=== PATIENT | male | born 1945 | race Caucasian/White ===

== ENCOUNTER 2018-01-25 08:21 | Day surgery (SDC) | payer OTHER ==
[2018-01-23 12:02] VITALS: BMI 36.6
[~2018-01-25 08:21] MED LIST: LACTATED RINGERS 1,000 ML IV SCH
[2018-01-25 08:54] VITALS: TEMP 98
[2018-01-25] MEDS ORDERED: LACTATED RINGERS 1,000 ML IV ONE (08:54)
[2018-01-25] MEDS ORDERED: LIDOCAINE 1% 20 ML VIAL (10MG/ML) FOR IV START INTRADERMA ONE (08:54)
[2018-01-25] MEDS ORDERED: PROPOFOL 10 MG/ML 20 ML VIAL IV ONE (10:14)
--- NOTE | 2018-01-25 10:40 | P.PCN ---
Date of Procedure: 01/25/18 Procedure(s) Performed: procedure: Total colonoscopy. Preoperative diagnosis: Screening for neoplasia, patient has history of polyps. Postoperative diagnosis: Diffuse diverticulosis with no evidence of acute diverticulitis, strictures, polyps or cancer. Preparation: HalfLytely prep. Sedation: Was provided by anesthesia. Brief clinical history: The patient is a 72-year-old male who had a colonoscopy in February 2014 because of finding of blood in his stools. That showed multiple small and medium-sized polyps which were snared. The patient was advised repeat exam for surveillance. Procedure: With the patient on his left lateral decubitus position and after informed consent and adequate sedation, the perianal area was inspected and it did not show any fissures or fistulas. There were no masses felt on digital rectal examination. The Olympus CFQ 160L video colonoscope was then inserted in the rectum in the usual fashion and advanced to the cecum. There was diffuse diverticulosis noted with multiple diverticular orifices seen scattered on both the right and left side with no evidence of acute diverticulitis or strictures. The mucosa appeared healthy. No polyps or tumors were seen. I retroflexed the endoscope in the rectum before the endoscope was withdrawn. The patient tolerated the procedure well. Plan: The patient was reassured. Discussed dietary measures. He will follow up with you as planned and I recommended repeat exam in 5 years.
[2018-01-25 10:41] VITALS: RESP 16
[2018-01-25 10:48] VITALS: BP 140/92; PULSE 53
== END 2018-01-25 11:30 | disposition home or self-care (01) ==
LOC: ORWHC2ENDO 08:21
DX: Z12.11 Encounter for screening for malignant neoplasm of colon (principal); K57.30 Diverticulosis of large intestine without perforation or abscess without bleeding; I10 Essential (primary) hypertension; K21.9 Gastro-esophageal reflux disease without esophagitis; E78.5 Hyperlipidemia, unspecified; E07.9 Disorder of thyroid, unspecified; Z79.82 Long term (current) use of aspirin; Z86.010 Personal history of colon polyps; Z79.890 Hormone replacement therapy; Z79.899 Other long term (current) drug therapy
CPT/HCPCS: 45378; J2704

== ENCOUNTER → 2019-05-24 | Outpatient (CLI) | payer OTHER ==
[2019-05-24 12:28] LABS: African American GFR (CKD) >90 (>60 ml/min/1.73 sqM); Blood Urea Nitrogen 24 mg/dL (9-20); Non-African American GFR(CKD) 85 (>60 ml/min/1.73 sqM)
--- NOTE | 2019-05-24 14:51 | CT ---
EXAMINATION TYPE: CT abdomen pelvis wo/w con DATE OF EXAM: 05/24/2019 COMPARISON: None HISTORY: Abdominal pain CT DLP: 2600 mGycm CONTRAST: CT scan of the abdomen and pelvis is performed with Oral Contrast and without and with IV Contrast, p atient injected with 100 ml mL of Isovue 300. FINDINGS: LUNG BASES-: No visible nodule. No infiltrate. LIVER/GB: The gallbladder is surgically absent. No space occupying hepatic lesion. Biliary tree is of normal caliber. PANCREAS: No inflammation. No distinct mass. SPLEEN: No splenic enlargement. No lesion seen. Splenic granulomas identified. ADRENALS: No nodule. No thickening. KIDNEYS/BLADDER: No hydronephrosis. No nephrolithiasis. No distinct renal mass. Urinary bladder g rossly unremarkable. BOWEL: Normal appendix. Normal bowel caliber. No inflammation. Sigmoid diverticulosis without diver ticulitis. GENITAL ORGANS: No gross abnormality. LYMPH NODES: No greater than 1cm abdominal or pelvic lymph nodes are appreciated. AORTA: No significant abnormality. OSSEOUS STRUCTURES: No significant abnormality is seen. OTHER: No significant additional abnormality is seen. IMPRESSION: 1. No acute process identified to account for the patient's symptoms.
== END | disposition home or self-care (01) ==
LOC: RADCTMAIN 11:44
DX: R10.9 Unspecified abdominal pain (principal)
CPT/HCPCS: 82565; 84520; 74178; 36415; Q9967

== ENCOUNTER 2022-02-18 11:52 | Inpatient (IN) | payer OTHER, MEDICARE ==
[2022-02-18 12:09] LABS: Glucose,Whole Blood >600 mg/dL (70-110)
[2022-02-18 12:09] LABS: Glucose,Whole Blood >600 mg/dL (70-110)
[2022-02-18] MEDS ORDERED: ONDANSETRON 4 MG/2 ML VIAL IVP STA (12:24)
[2022-02-18] MEDS ORDERED: SODIUM CHLORIDE 0.9% 1,000 ML IV STA (12:24)
--- NOTE | 2022-02-18 12:24 | ED ---
General Adult HPI - General Chief complaint: Weakness Stated complaint: dizziness Time Seen by Provider: 02/18/22 12:15 Source: patient, family Mode of arrival: wheelchair - History of Present Illness Initial comments: 77-year-old male presents to the emergency department reporting lightheadedness for the past couple of days. He admits he has been weak with a poor appetite. He is a diabetic and admits to taking his Lantus however was taken off of his short acting insulin one month ago. He is unaware of why this was done. He has not checked his sugar in over 2 weeks. States that his dog ruined his Accu-Chek machine. He is concerned that his glucose is low. She admits to some chronic low back pain. Denies any abdominal pain. No diarrhea, vomiting, fevers, chest pain, shortness of breath. No other alleviating, precipitating or modifying factors - Related Data Home Medications Medication Instructions Recorded Confirmed Aspirin 81 mg PO HS 02/14/14 02/18/22 Atorvastatin [Lipitor] 80 mg PO HS 02/14/14 02/18/22 Levothyroxine Sodium [Synthroid] 100 mcg PO HS 02/14/14 02/18/22 Cholecalciferol [Vitamin D3 (25 50 mcg PO HS 02/18/22 02/18/22 Mcg = 1000 Iu)] Empagliflozin [Jardiance] 25 mg PO HS 02/18/22 02/18/22 Ibuprofen [Motrin] 600 mg PO Q8HR PRN 02/18/22 02/18/22 Insulin Glargine,Hum.rec.anlog 60 units SQ HS 02/18/22 02/18/22 [Insulin Glargine Solostar] Pioglitazone [Actos] 30 mg PO HS 02/18/22 02/18/22 Tamsulosin HCl [Flomax] 0.4 mg PO HS 02/18/22 02/18/22 amLODIPine [Norvasc] 5 mg PO HS 02/18/22 02/18/22 lisinopriL [Zestril] 20 mg PO HS 02/18/22 02/18/22 metFORMIN HCL [Glucophage] 1,000 mg PO HS 02/18/22 02/18/22 Allergies Allergy/AdvReac Type Severity Reaction Status Date / Time No Known Allergies Allergy Verified 02/18/22 15:01 Review of Systems ROS Statement: Those systems with pertinent positive or pertinent negative responses have been documented in the HPI. ROS Other: All systems not noted in ROS Statement are negative. Past Medical History Past Medical History: GERD/Reflux, Hyperlipidemia, Thyroid Disorder Additional Past Medical History / Comment(s): occ heartburn, History of Any Multi-Drug Resistant Organisms: None Reported Past Surgical History: Cholecystectomy Past Anesthesia/Blood Transfusion Reactions: No Reported Reaction Past Psychological History: No Psychological Hx Reported Past Alcohol Use History: None Reported Past Drug Use History: None Reported - Past Family History Mother Family Medical History: Cancer General Exam General appearance: lethargic Head exam: Present: atraumatic, normocephalic, normal inspection Eye exam: Present: normal appearance, PERRL, EOMI. Absent: scleral icterus, conjunctival injection, periorbital swelling ENT exam: Present: mucous membranes dry, other (acetone smell to breath) Respiratory exam: Present: normal lung sounds bilaterally. Absent: respiratory distress, wheezes, rales, rhonchi, stridor Cardiovascular Exam: Present: regular rate, normal rhythm, normal heart sounds. Absent: systolic murmur, diastolic murmur, rubs, gallop, clicks GI/Abdominal exam: Present: soft, normal bowel sounds. Absent: distended, tenderness, guarding, rebound, rigid Extremities exam: Present: normal inspection, full ROM, normal capillary refill. Absent: tenderness, pedal edema, joint swelling, calf tenderness Psychiatric exam: Present: flat affect Skin exam: Present: dry Course Vital Signs 02/18/22 02/18/22 02/18/22 12:02 14:53 17:11 Temperature 97.5 F L Pulse Rate 80 90 96 Pulse Rate [ Bicycle Inspector ] Respiratory 20 18 18 Rate Blood Pressure 71/47 105/67 86/51 O2 Sat by Pulse 99 96 98 Oximetry 02/18/22 02/18/22 02/18/22 20:04 22:19 23:19 Temperature 97.6 F 97.7 F Pulse Rate 94 80 90 Pulse Rate [ Bicycle Inspector ] Respiratory 20 20 Rate Blood Pressure 83/47 94/49 90/59 O2 Sat by Pulse 93 L 95 93 L Oximetry 02/19/22 02/19/22 02/19/22 01:04 01:43 01:44 Temperature Pulse Rate 98 89 Pulse Rate [ 89 Bicycle Inspector ] Respiratory 14 19 Rate Blood Pressure 83/48 94/52 O2 Sat by Pulse 93 L 93 L Oximetry 02/19/22 02/19/22 02/19/22 03:27 04:32 05:33 Temperature 97.8 F 97.9 F 97.7 F Pulse Rate 98 85 81 Pulse Rate [ Bicycle Inspector ] Respiratory 16 19 19 Rate Blood Pressure 89/55 87/51 86/62 O2 Sat by Pulse 97 97 91 L Oximetry 02/19/22 02/19/22 02/19/22 07:29 08:44 09:43 Temperature Pulse Rate 72 73 74 Pulse Rate [ Bicycle Inspector ] Respiratory 24 20 20 Rate Blood Pressure 88/39 84/64 82/51 O2 Sat by Pulse 94 L 95 95 Oximetry 02/19/22 02/19/22 02/19/22 10:54 12:09 16:17 Temperature Pulse Rate 75 62 85 Pulse Rate [ Bicycle Inspector ] Respiratory 21 18 14 Rate Blood Pressure 100/60 124/85 92/63 O2 Sat by Pulse 96 97 95 Oximetry - Reevaluation(s) Reevaluation #1: Spoke with Dr. Roberson. Will accept the patient into the ICU however there is a significant hold for beds 02/18/22 15:54 EKG Findings - EKG Comments: EKG Findings:: EKG demonstrates sinus rhythm with a rate of 76. ND interval 161. QRS 110. QTC of 453. Significant baseline artifact. No acute ST segment elevation. ST depression V4 through V6. EKG was interpreted by myself Medical Decision Making - Medical Decision Making Upon arrival patient was placed into room 5. A thorough history and physical exam was performed. IV access is established. He was given 2 L bolus of normal saline. Laboratory studies are conducted which are remarkable for white count of 16.3. PH is 7.24. CO2 25. O2 of 77. Glucose is 1056. Lactic acid 5.8. Troponin 0.066 area and he is acetone positive. Chest x-ray demonstrates no acute cardiopulmonary process. Patient is started on insulin drip. Spoke with Dr. Hall. Also spoke with Dr. Roberson for ICU admission. Patient agreeable to admission and is awaiting a bed on the floor in stable condition - Lab Data Result diagrams: 02/19/22 22:01 02/19/22 22:01 Lab Results 02/18/22 02/18/22 02/18/22 Range/Units 12:04 12:06 12:29 WBC 16.3 H (3.8-10.6) k/uL RBC 4.24 L (4.30-5.90) m/uL Hgb 14.0 (13.0-17.5) gm/dL Hct 45.5 (39.0-53.0) % MCV 107.3 H (80.0-100.0) fL MCH 32.9 (25.0-35.0) pg MCHC 30.7 L (31.0-37.0) g/dL RDW 12.1 (11.5-15.5) % Plt Count 201 (150-450) k/uL MPV 11.1 Neutrophils % 87 % Lymphocytes % 8 % Monocytes % 3 % Eosinophils % 0 % Basophils % 0 % Neutrophils # 14.2 H (1.3-7.7) k/uL Lymphocytes # 1.4 (1.0-4.8) k/uL Monocytes # 0.5 (0-1.0) k/uL Eosinophils # 0.1 (0-0.7) k/uL Basophils # 0.1 (0-0.2) k/uL Hypochromasia Marked Macrocytosis Moderate PT (9.0-12.0) sec INR (<1.2) APTT (22.0-30.0) sec Sample Site ABG pH (7.35-7.45) ABG pCO2 (35-45) mmHg ABG pO2 (83-108) mmHg ABG HCO3 (21-25) mmol/L ABG Total CO2 (19-24) mmol/L ABG O2 Saturation (94-97) % ABG Base Excess mmol/L Padilla Test VBG pH (7.31-7.41) VBG pCO2 (37-51) mmHg VBG HCO3 (24-28) mmol/L FiO2 % Sodium (137-145) mmol/L Potassium (3.5-5.1) mmol/L Chloride (98-107) mmol/L Carbon Dioxide (22-30) mmol/L Anion Gap mmol/L BUN (9-20) mg/dL Creatinine (0.66-1.25) mg/dL Est GFR (CKD-EPI)AfAm (>60 ml/min/1.73 sqM) Est GFR (CKD-EPI)NonAf (>60 ml/min/1.73 sqM) Glucose (74-99) mg/dL POC Glucose (mg/dL) >600 H >600 H (70-110) mg/dL POC Glu Tool Honing Machine Set Up Operator MARÍA Glasgow, Juanita Glasgow, Juanita Lactic Ac Sepsis Rflx Plasma Lactic Acid Bryn (0.7-2.0) mmol/L Calcium (8.4-10.2) mg/dL Phosphorus (2.5-4.5) mg/dL Magnesium (1.6-2.3) mg/dL Total Bilirubin (0.2-1.3) mg/dL AST (17-59) U/L ALT (4-49) U/L Alkaline Phosphatase (38-126) U/L Troponin I (0.000-0.034) ng/mL NT-Pro-B Natriuret Pep pg/mL Total Protein (6.3-8.2) g/dL Albumin (3.5-5.0) g/dL Lipase (23-300) U/L TSH (0.465-4.680) mIU/L Free T4 (0.78-2.19) ng/dL Acetone, Qual (Negative) 02/18/22 02/18/22 02/18/22 Range/Units 12:29 12:29 12:29 WBC (3.8-10.6) k/uL RBC (4.30-5.90) m/uL Hgb (13.0-17.5) gm/dL Hct (39.0-53.0) % MCV (80.0-100.0) fL MCH (25.0-35.0) pg MCHC (31.0-37.0) g/dL RDW (11.5-15.5) % Plt Count (150-450) k/uL MPV Neutrophils % % Lymphocytes % % Monocytes % % Eosinophils % % Basophils % % Neutrophils # (1.3-7.7) k/uL Lymphocytes # (1.0-4.8) k/uL Monocytes # (0-1.0) k/uL Eosinophils # (0-0.7) k/uL Basophils # (0-0.2) k/uL Hypochromasia Macrocytosis PT (9.0-12.0) sec INR (<1.2) APTT (22.0-30.0) sec Sample Site ABG pH (7.35-7.45) ABG pCO2 (35-45) mmHg ABG pO2 (83-108) mmHg ABG HCO3 (21-25) mmol/L ABG Total CO2 (19-24) mmol/L ABG O2 Saturation (94-97) % ABG Base Excess mmol/L Padilla Test VBG pH (7.31-7.41) VBG pCO2 (37-51) mmHg VBG HCO3 (24-28) mmol/L FiO2 % Sodium 123 L (137-145) mmol/L Potassium 5.0 (3.5-5.1) mmol/L Chloride 79 L (98-107) mmol/L Carbon Dioxide 10 L (22-30) mmol/L Anion Gap 34 mmol/L BUN 43 H (9-20) mg/dL Creatinine 2.16 H (0.66-1.25) mg/dL Est GFR (CKD-EPI)AfAm 33 (>60 ml/min/1.73 sqM) Est GFR (CKD-EPI)NonAf 28 (>60 ml/min/1.73 sqM) Glucose 1056 H* (74-99) mg/dL POC Glucose (mg/dL) (70-110) mg/dL POC Glu Tool Honing Machine Set Up Operator ID Lactic Ac Sepsis Rflx Plasma Lactic Acid Bryn 5.8 H* (0.7-2.0) mmol/L Calcium 10.6 H (8.4-10.2) mg/dL Phosphorus (2.5-4.5) mg/dL Magnesium 2.3 (1.6-2.3) mg/dL Total Bilirubin 1.7 H (0.2-1.3) mg/dL AST 30 (17-59) U/L ALT 35 (4-49) U/L Alkaline Phosphatase 159 H (38-126) U/L Troponin I 0.066 H* (0.000-0.034) ng/mL NT-Pro-B Natriuret Pep pg/mL Total Protein 6.2 L (6.3-8.2) g/dL Albumin 4.2 (3.5-5.0) g/dL Lipase 199 (23-300) U/L TSH 10.100 H (0.465-4.680) mIU/L Free T4 1.48 (0.78-2.19) ng/dL Acetone, Qual Positive (Negative) 02/18/22 02/18/22 02/18/22 Range/Units 12:29 12:29 13:02 WBC (3.8-10.6) k/uL RBC (4.30-5.90) m/uL Hgb (13.0-17.5) gm/dL Hct (39.0-53.0) % MCV (80.0-100.0) fL MCH (25.0-35.0) pg MCHC (31.0-37.0) g/dL RDW (11.5-15.5) % Plt Count (150-450) k/uL MPV Neutrophils % % Lymphocytes % % Monocytes % % Eosinophils % % Basophils % % Neutrophils # (1.3-7.7) k/uL Lymphocytes # (1.0-4.8) k/uL Monocytes # (0-1.0) k/uL Eosinophils # (0-0.7) k/uL Basophils # (0-0.2) k/uL Hypochromasia Macrocytosis PT (9.0-12.0) sec INR (<1.2) APTT (22.0-30.0) sec Sample Site ABG pH (7.35-7.45) ABG pCO2 (35-45) mmHg ABG pO2 (83-108) mmHg ABG HCO3 (21-25) mmol/L ABG Total CO2 (19-24) mmol/L ABG O2 Saturation (94-97) % ABG Base Excess mmol/L Padilla Test VBG pH 7.20 L* (7.31-7.41) VBG pCO2 33 L (37-51) mmHg VBG HCO3 12 L (24-28) mmol/L FiO2 % Sodium (137-145) mmol/L Potassium (3.5-5.1) mmol/L Chloride (98-107) mmol/L Carbon Dioxide (22-30) mmol/L Anion Gap mmol/L BUN (9-20) mg/dL Creatinine (0.66-1.25) mg/dL Est GFR (CKD-EPI)AfAm (>60 ml/min/1.73 sqM) Est GFR (CKD-EPI)NonAf (>60 ml/min/1.73 sqM) Glucose (74-99) mg/dL POC Glucose (mg/dL) (70-110) mg/dL POC Glu Tool Honing Machine Set Up Operator ID Lactic Ac Sepsis Rflx Y Plasma Lactic Acid Bryn (0.7-2.0) mmol/L Calcium (8.4-10.2) mg/dL Phosphorus (2.5-4.5) mg/dL Magnesium (1.6-2.3) mg/dL Total Bilirubin (0.2-1.3) mg/dL AST (17-59) U/L ALT (4-49) U/L Alkaline Phosphatase (38-126) U/L Troponin I (0.000-0.034) ng/mL NT-Pro-B Natriuret Pep 388 pg/mL Total Protein (6.3-8.2) g/dL Albumin (3.5-5.0) g/dL Lipase (23-300) U/L TSH (0.465-4.680) mIU/L Free T4 (0.78-2.19) ng/dL Acetone, Qual (Negative) 02/18/22 02/18/22 02/18/22 Range/Units 13:20 14:47 15:49 WBC (3.8-10.6) k/uL RBC (4.30-5.90) m/uL Hgb (13.0-17.5) gm/dL Hct (39.0-53.0) % MCV (80.0-100.0) fL MCH (25.0-35.0) pg MCHC (31.0-37.0) g/dL RDW (11.5-15.5) % Plt Count (150-450) k/uL MPV Neutrophils % % Lymphocytes % % Monocytes % % Eosinophils % % Basophils % % Neutrophils # (1.3-7.7) k/uL Lymphocytes # (1.0-4.8) k/uL Monocytes # (0-1.0) k/uL Eosinophils # (0-0.7) k/uL Basophils # (0-0.2) k/uL Hypochromasia Macrocytosis PT 10.8 (9.0-12.0) sec INR 1.0 (<1.2) APTT 21.7 L (22.0-30.0) sec Sample Site Right Brachial ABG pH 7.24 L (7.35-7.45) ABG pCO2 25 L (35-45) mmHg ABG pO2 77 L (83-108) mmHg ABG HCO3 11 L (21-25) mmol/L ABG Total CO2 11 L (19-24) mmol/L ABG O2 Saturation 93.1 L (94-97) % ABG Base Excess -16.9 mmol/L Padilla Test Yes VBG pH (7.31-7.41) VBG pCO2 (37-51) mmHg VBG HCO3 (24-28) mmol/L FiO2 21 % Sodium (137-145) mmol/L Potassium (3.5-5.1) mmol/L Chloride (98-107) mmol/L Carbon Dioxide (22-30) mmol/L Anion Gap mmol/L BUN (9-20) mg/dL Creatinine (0.66-1.25) mg/dL Est GFR (CKD-EPI)AfAm (>60 ml/min/1.73 sqM) Est GFR (CKD-EPI)NonAf (>60 ml/min/1.73 sqM) Glucose (74-99) mg/dL POC Glucose (mg/dL) (70-110) mg/dL POC Glu Tool Honing Machine Set Up Operator ID Lactic Ac Sepsis Rflx Plasma Lactic Acid Bryn 3.8 H* (0.7-2.0) mmol/L Calcium (8.4-10.2) mg/dL Phosphorus (2.5-4.5) mg/dL Magnesium (1.6-2.3) mg/dL Total Bilirubin (0.2-1.3) mg/dL AST (17-59) U/L ALT (4-49) U/L Alkaline Phosphatase (38-126) U/L Troponin I (0.000-0.034) ng/mL NT-Pro-B Natriuret Pep pg/mL Total Protein (6.3-8.2) g/dL Albumin (3.5-5.0) g/dL Lipase (23-300) U/L TSH (0.465-4.680) mIU/L Free T4 (0.78-2.19) ng/dL Acetone, Qual (Negative) 02/18/22 02/18/22 02/18/22 Range/Units 15:49 15:49 15:49 WBC (3.8-10.6) k/uL RBC (4.30-5.90) m/uL Hgb (13.0-17.5) gm/dL Hct (39.0-53.0) % MCV (80.0-100.0) fL MCH (25.0-35.0) pg MCHC (31.0-37.0) g/dL RDW (11.5-15.5) % Plt Count (150-450) k/uL MPV Neutrophils % % Lymphocytes % % Monocytes % % Eosinophils % % Basophils % % Neutrophils # (1.3-7.7) k/uL Lymphocytes # (1.0-4.8) k/uL Monocytes # (0-1.0) k/uL Eosinophils # (0-0.7) k/uL Basophils # (0-0.2) k/uL Hypochromasia Macrocytosis PT (9.0-12.0) sec INR (<1.2) APTT (22.0-30.0) sec Sample Site ABG pH (7.35-7.45) ABG pCO2 (35-45) mmHg ABG pO2 (83-108) mmHg ABG HCO3 (21-25) mmol/L ABG Total CO2 (19-24) mmol/L ABG O2 Saturation (94-97) % ABG Base Excess mmol/L Padilla Test VBG pH (7.31-7.41) VBG pCO2 (37-51) mmHg VBG HCO3 (24-28) mmol/L FiO2 % Sodium 126 L (137-145) mmol/L Potassium 5.1 (3.5-5.1) mmol/L Chloride 85 L (98-107) mmol/L Carbon Dioxide 9 L* (22-30) mmol/L Anion Gap 32 mmol/L BUN 49 H (9-20) mg/dL Creatinine 2.03 H (0.66-1.25) mg/dL Est GFR (CKD-EPI)AfAm 36 (>60 ml/min/1.73 sqM) Est GFR (CKD-EPI)NonAf 31 (>60 ml/min/1.73 sqM) Glucose 1014 H* (74-99) mg/dL POC Glucose (mg/dL) (70-110) mg/dL POC Glu Tool Honing Machine Set Up Operator ID Lactic Ac Sepsis Rflx Plasma Lactic Acid Bryn (0.7-2.0) mmol/L Calcium (8.4-10.2) mg/dL Phosphorus 8.0 H (2.5-4.5) mg/dL Magnesium (1.6-2.3) mg/dL Total Bilirubin (0.2-1.3) mg/dL AST (17-59) U/L ALT (4-49) U/L Alkaline Phosphatase (38-126) U/L Troponin I 0.295 H* (0.000-0.034) ng/mL NT-Pro-B Natriuret Pep pg/mL Total Protein (6.3-8.2) g/dL Albumin (3.5-5.0) g/dL Lipase (23-300) U/L TSH (0.465-4.680) mIU/L Free T4 (0.78-2.19) ng/dL Acetone, Qual (Negative) Critical Care Time Critical Care Time: Yes Critical Care Time: 45 minutes Disposition Clinical Impression: DKA (diabetic ketoacidosis), Lactic acid acidosis, Leukocytosis, JENIFER (acute kidney injury), NSTEMI (non-ST elevated myocardial infarction) Disposition: ADMITTED IP TO THIS [facility] Condition: Serious Is patient prescribed a controlled substance at d/c from ED?: No Time of Disposition: 16:07 Decision to Admit Reason: Admit from EC Decision Date: 02/18/22 Decision Time: 16:07
[2022-02-18 12:45] LABS: Basophils # (A) 0.1 k/uL (0-0.2); Basophils % (A) 0 %; Eosinophils # (A) 0.1 k/uL (0-0.7); Eosinophils % (A) 0 %; HCT 45.5 % (39.0-53.0); Hypochromasia Marked; Lymphocytes # (A) 1.4 k/uL (1.0-4.8); Lymphocytes % (A) 8 %; MCH 32.9 pg (25.0-35.0); MCHC 30.7 g/dL (31.0-37.0); MCV 107.3 fL (80.0-100.0); Macrocytosis Moderate; Mean Platelet Volume 11.1; Monocytes # (A) 0.5 k/uL (0-1.0); Monocytes % (A) 3 %; Neutrophils # (A) 14.2 k/uL (1.3-7.7); Neutrophils % (A) 87 %; Platelet Count 201 k/uL (150-450); RBC 4.24 m/uL (4.30-5.90); RDW 12.1 % (11.5-15.5); WBC 16.3 k/uL (3.8-10.6)
[2022-02-18 12:47] LABS: VBG PH 7.2 (7.31-7.41)
[2022-02-18 12:56] LABS: ALT 35 U/L (4-49); AST 30 U/L (17-59); African American GFR (CKD) 33 (>60 ml/min/1.73 sqM); Albumin 4.2 g/dL (3.5-5.0); Alkaline Phosphatase 159 U/L (38-126); Anion Gap 34 mmol/L; Blood Urea Nitrogen 43 mg/dL (9-20); Calcium 10.6 mg/dL (8.4-10.2); Carbon Dioxide 10 mmol/L (22-30); Chloride 79 mmol/L (98-107); Lipase 199 U/L (23-300); Magnesium 2.3 mg/dL (1.6-2.3); Non-African American GFR(CKD) 28 (>60 ml/min/1.73 sqM); Sodium 123 mmol/L (137-145); Total Bilirubin 1.7 mg/dL (0.2-1.3); Total Protein 6.2 g/dL (6.3-8.2)
[2022-02-18 13:09] LABS: Glucose 1056 mg/dL (74-99)
--- NOTE | 2022-02-18 13:16 | XR ---
EXAMINATION TYPE: XR chest 2V DATE OF EXAM: 02/18/2022 1:11 PM COMPARISON: Chest radiographs from 12/04/2015 TECHNIQUE: XR chest 2V Frontal and lateral views of the chest. CLINICAL INDICATION:Male, 77 years old with history of Weakness; FINDINGS: Lungs/Pleura: There is no evidence of pleural effusion, focal consolidation, or pneumothorax. Pulmonary vascularity: Unremarkable. Heart/mediastinum: Cardiomediastinal silhouette is unremarkable. Musculoskeletal: No acute osseous pathology. IMPRESSION: No acute cardiopulmonary disease/process.
[2022-02-18 13:27] LABS: ABG Base Excess -16.9 mmol/L; ABG HCO3 11 mmol/L (21-25); ABG Oxygen Saturation 93.1 % (94-97); ABG PCO2 25 mmHg (35-45); ABG PH 7.24 (7.35-7.45); ABG PO2 77 mmHg (83-108); ABG TCO2 11 mmol/L (19-24); Allen Test Performed? Yes
[2022-02-18 14:24] LABS: T4, Free (Free Thyroxine) 1.48 ng/dL (0.78-2.19)
[2022-02-18] MEDS ORDERED: fentaNYL (PF) 50 MCG/ML 2 ML AMP IVP ONE (14:45)
[2022-02-18 15:20] LABS: Partial Thromboplastin Time 21.7 sec (22.0-30.0); Prothrombin Time 10.8 sec (9.0-12.0)
[2022-02-18] MEDS ORDERED: NALOXONE 0.4 MG/ML 1 ML VIAL IV PRN (16:01)
[2022-02-18 16:23] LABS: Potassium 5.1 mmol/L (3.5-5.1)
--- NOTE | 2022-02-18 16:40 | P.HPIM ---
History of Present Illness H&P Date: 02/18/22 Chief Complaint: Lightheadedness and DKA Patient is a 77-year-old male with a past medical history of diabetes, hypothyroidism, hypertension, hyperlipidemia, BPH who presents to the ED with lightheadedness and headache. Patient states that his symptoms started this morning when he woke up. Patient initially attributed this to low blood sugar. Unfortunately he was not able to check his blood sugar because his dog ate his glucometer. Patient states that he ate some candy and also drank some pop which he normally does when he has low blood sugar. He states that his symptoms did not resolve and this prompted him to come to the ED. Patient also stated that recently his PCP discontinued his short-acting insulin. Patient stated that he was diagnosed with diabetes about 2 years ago. Patient also complaining of polydipsia and polyuria. In the ED patient was found to be in DKA with pH 7.24 and bicarb 10 and blood glucose greater than 1000 and lactic acid 5.8 and creatinine 2.16 and troponin 0.066 and TSH 10 with T4 1 0.48. Patient will be started on DKA protocol and will be admitted to the ICU. Review of Systems 10 ROS reviewed and are negative except as noted in HPI Past Medical History Past Medical History: GERD/Reflux, Hyperlipidemia, Thyroid Disorder Additional Past Medical History / Comment(s): occ heartburn, History of Any Multi-Drug Resistant Organisms: None Reported Past Surgical History: Cholecystectomy Past Anesthesia/Blood Transfusion Reactions: No Reported Reaction Past Psychological History: No Psychological Hx Reported Past Alcohol Use History: None Reported Past Drug Use History: None Reported - Past Family History Mother Family Medical History: Cancer Medications and Allergies Home Medications Medication Instructions Recorded Confirmed Type Aspirin 81 mg PO HS 02/14/14 02/18/22 History Atorvastatin [Lipitor] 80 mg PO HS 02/14/14 02/18/22 History Levothyroxine Sodium [Synthroid] 100 mcg PO HS 02/14/14 02/18/22 History Cholecalciferol [Vitamin D3 (25 50 mcg PO HS 02/18/22 02/18/22 History Mcg = 1000 Iu)] Empagliflozin [Jardiance] 25 mg PO HS 02/18/22 02/18/22 History Ibuprofen [Motrin] 600 mg PO Q8HR PRN 02/18/22 02/18/22 History Insulin Glargine,Hum.rec.anlog 60 units SQ HS 02/18/22 02/18/22 History [Insulin Glargine Solostar] Pioglitazone [Actos] 30 mg PO HS 02/18/22 02/18/22 History Tamsulosin HCl [Flomax] 0.4 mg PO HS 02/18/22 02/18/22 History amLODIPine [Norvasc] 5 mg PO HS 02/18/22 02/18/22 History lisinopriL [Zestril] 20 mg PO HS 02/18/22 02/18/22 History metFORMIN HCL [Glucophage] 1,000 mg PO HS 02/18/22 02/18/22 History Allergies Allergy/AdvReac Type Severity Reaction Status Date / Time No Known Allergies Allergy Verified 02/18/22 15:01 Physical Exam Osteopathic Statement: *. No significant issues noted on an osteopathic structural exam other than those noted in the History and Physical/Consult. Vitals: Vital Signs Temp Pulse Resp BP Pulse Ox 02/18/22 14:53 90 18 105/67 96 02/18/22 12:02 97.5 F L 80 20 71/47 99 Intake and Output 02/18/22 02/18/22 02/18/22 06:59 14:59 22:59 Other: Weight 95.254 kg General: [Alert and oriented, well nourished, no acute distress]. Eye: [PERRL, EOMI, normal conjunctiva]. HENT: [Normocephalic, clear tympanic membranes, normal hearing, dry oral mucosa, no scleral icterus, no sinus tenderness]. Neck: [Supple, non-tender, no carotid bruits, no JVD, no lymphadenopathy]. Lungs: [Clear to auscultation and percussion, non-labored respiration]. Heart: [Normal rate, regular rhythm, no murmur, gallop or edema]. Abdomen: [Soft, non-tender, non-distended, normal bowel sounds, no masses]. Musculoskeletal: [Normal range of motion and strength, no tenderness or swelling]. Skin: [Skin is warm, dry and pink, no rashes or lesions]. Neurologic: [Awake, alert, and oriented X3, CN II-XII intact]. Psychiatric: [Cooperative, appropriate mood and affect]. Results CBC & Chem 7: 02/18/22 12:29 02/18/22 12:29 Labs: Abnormal Lab Results - Last 24 Hours (Table) 02/18/22 02/18/22 02/18/22 Range/Units 12:04 12:06 12:29 WBC 16.3 H (3.8-10.6) k/uL RBC 4.24 L (4.30-5.90) m/uL MCV 107.3 H (80.0-100.0) fL MCHC 30.7 L (31.0-37.0) g/dL Neutrophils # 14.2 H (1.3-7.7) k/uL APTT (22.0-30.0) sec ABG pH (7.35-7.45) ABG pCO2 (35-45) mmHg ABG pO2 (83-108) mmHg ABG HCO3 (21-25) mmol/L ABG Total CO2 (19-24) mmol/L ABG O2 Saturation (94-97) % VBG pH (7.31-7.41) VBG pCO2 (37-51) mmHg VBG HCO3 (24-28) mmol/L Sodium (137-145) mmol/L Chloride (98-107) mmol/L Carbon Dioxide (22-30) mmol/L BUN (9-20) mg/dL Creatinine (0.66-1.25) mg/dL Glucose (74-99) mg/dL POC Glucose (mg/dL) >600 H >600 H (70-110) mg/dL Plasma Lactic Acid Bryn (0.7-2.0) mmol/L Calcium (8.4-10.2) mg/dL Phosphorus (2.5-4.5) mg/dL Total Bilirubin (0.2-1.3) mg/dL Alkaline Phosphatase (38-126) U/L Troponin I (0.000-0.034) ng/mL Total Protein (6.3-8.2) g/dL TSH (0.465-4.680) mIU/L 02/18/22 02/18/22 02/18/22 Range/Units 12:29 12:29 12:29 WBC (3.8-10.6) k/uL RBC (4.30-5.90) m/uL MCV (80.0-100.0) fL MCHC (31.0-37.0) g/dL Neutrophils # (1.3-7.7) k/uL APTT (22.0-30.0) sec ABG pH (7.35-7.45) ABG pCO2 (35-45) mmHg ABG pO2 (83-108) mmHg ABG HCO3 (21-25) mmol/L ABG Total CO2 (19-24) mmol/L ABG O2 Saturation (94-97) % VBG pH (7.31-7.41) VBG pCO2 (37-51) mmHg VBG HCO3 (24-28) mmol/L Sodium 123 L (137-145) mmol/L Chloride 79 L (98-107) mmol/L Carbon Dioxide 10 L (22-30) mmol/L BUN 43 H (9-20) mg/dL Creatinine 2.16 H (0.66-1.25) mg/dL Glucose 1056 H* (74-99) mg/dL POC Glucose (mg/dL) (70-110) mg/dL Plasma Lactic Acid Bryn 5.8 H* (0.7-2.0) mmol/L Calcium 10.6 H (8.4-10.2) mg/dL Phosphorus (2.5-4.5) mg/dL Total Bilirubin 1.7 H (0.2-1.3) mg/dL Alkaline Phosphatase 159 H (38-126) U/L Troponin I 0.066 H* (0.000-0.034) ng/mL Total Protein 6.2 L (6.3-8.2) g/dL TSH 10.100 H (0.465-4.680) mIU/L 02/18/22 02/18/22 02/18/22 Range/Units 12:29 13:20 14:47 WBC (3.8-10.6) k/uL RBC (4.30-5.90) m/uL MCV (80.0-100.0) fL MCHC (31.0-37.0) g/dL Neutrophils # (1.3-7.7) k/uL APTT 21.7 L (22.0-30.0) sec ABG pH 7.24 L (7.35-7.45) ABG pCO2 25 L (35-45) mmHg ABG pO2 77 L (83-108) mmHg ABG HCO3 11 L (21-25) mmol/L ABG Total CO2 11 L (19-24) mmol/L ABG O2 Saturation 93.1 L (94-97) % VBG pH 7.20 L* (7.31-7.41) VBG pCO2 33 L (37-51) mmHg VBG HCO3 12 L (24-28) mmol/L Sodium (137-145) mmol/L Chloride (98-107) mmol/L Carbon Dioxide (22-30) mmol/L BUN (9-20) mg/dL Creatinine (0.66-1.25) mg/dL Glucose (74-99) mg/dL POC Glucose (mg/dL) (70-110) mg/dL Plasma Lactic Acid Bryn (0.7-2.0) mmol/L Calcium (8.4-10.2) mg/dL Phosphorus (2.5-4.5) mg/dL Total Bilirubin (0.2-1.3) mg/dL Alkaline Phosphatase (38-126) U/L Troponin I (0.000-0.034) ng/mL Total Protein (6.3-8.2) g/dL TSH (0.465-4.680) mIU/L 02/18/22 Range/Units 15:49 WBC (3.8-10.6) k/uL RBC (4.30-5.90) m/uL MCV (80.0-100.0) fL MCHC (31.0-37.0) g/dL Neutrophils # (1.3-7.7) k/uL APTT (22.0-30.0) sec ABG pH (7.35-7.45) ABG pCO2 (35-45) mmHg ABG pO2 (83-108) mmHg ABG HCO3 (21-25) mmol/L ABG Total CO2 (19-24) mmol/L ABG O2 Saturation (94-97) % VBG pH (7.31-7.41) VBG pCO2 (37-51) mmHg VBG HCO3 (24-28) mmol/L Sodium (137-145) mmol/L Chloride (98-107) mmol/L Carbon Dioxide (22-30) mmol/L BUN (9-20) mg/dL Creatinine (0.66-1.25) mg/dL Glucose (74-99) mg/dL POC Glucose (mg/dL) (70-110) mg/dL Plasma Lactic Acid Bryn (0.7-2.0) mmol/L Calcium (8.4-10.2) mg/dL Phosphorus 8.0 H (2.5-4.5) mg/dL Total Bilirubin (0.2-1.3) mg/dL Alkaline Phosphatase (38-126) U/L Troponin I (0.000-0.034) ng/mL Total Protein (6.3-8.2) g/dL TSH (0.465-4.680) mIU/L Assessment and Plan Assessment: DKA Metabolic acidosis Lactic acidosis -DKA protocol -Admit to ICU -private household worker consult was patient will need home care as well as glucometer Acute kidney injury Secondary to the above -Patient given aggressive fluids -Hold nephrotoxic agents which include lisinopril and metformin -Trend BMP Hypothyroidism TSH is elevated Resume home dose levothyroxine Patient will need a repeat TSH as outpatient Hypertension Resume home meds Hyperlipidemia Resume statin BPH Resume tamsulosin CODE STATUS:full code DVT prophylaxis: Subcu heparin Discussed with: Patient, ER, rn Anticipated length of stay > than [address]: home A total of 50 minutes was spent on the care of this complex patient more than 50% of the time was spent in counseling and care coordination.
[2022-02-18] MEDS: INSULIN REGULAR 100 UNIT in SODIUM CHLORIDE 0.9% 100 ML IV SCH (17:09)
[2022-02-18] MEDS ORDERED: SODIUM CHLORIDE 0.9% 2,000 ML IV ONE (17:18)
[2022-02-18] MEDS ORDERED: Magnesium Replacement Protocol 1 EACH MISC MISCELLANE PRN (17:26)
[2022-02-18] MEDS ORDERED: Potassium Replacement Protocol 1 EACH MISC MISCELLANE PRN (17:26)
[2022-02-18] MEDS ORDERED: fentaNYL (PF) 50 MCG/ML 2 ML AMP IVP STA (20:30)
[2022-02-18] MEDS: SODIUM CHLORIDE 0.9% 1,000 ML IV SCH (20:34)
[2022-02-18 20:36] LABS: Appearance,Urine Clear (Clear); Bilirubin,Urine Negative (Negative); Blood,Urine Negative (Negative); Color,Urine Colorless; Glucose,Urine (UA) 4+ (Negative); Leukocyte Esterase,Urine Negative (Negative); Nitrite,Urine Negative (Negative); Protein,Urine Negative (Negative); Specific Gravity,Urine 1.024 (1.001-1.035); Urobilinogen,Urine <2.0 mg/dL (<2.0)
[2022-02-18] MEDS: ASPIRIN 81 MG PO SCH (20:38)
[2022-02-18] MEDS: ATORVASTATIN 80 MG TAB PO SCH (20:38)
[2022-02-18] MEDS: TAMSULOSIN 0.4 MG CAP.ER.24H PO SCH (20:38)
[2022-02-18] MEDS: CHOLECALCIFEROL 25 MCG (1000 IU) TABLET PO SCH (20:38)
[2022-02-18 20:52] LABS: Potassium 4.4 mmol/L (3.5-5.1)
[2022-02-18] MEDS ORDERED: amLODIPine 5 MG TAB PO SCH (21:00)
[2022-02-18 21:01] LABS: Ketones,Urine 2+ (Negative)
[2022-02-18] MEDS ORDERED: HEPARIN SODIUM 1,000 UN/ML (10ML VL) IV ONE (22:02)
[2022-02-18] MEDS ORDERED: HEPARIN SODIUM 1,000 UN/ML (10ML VL) IV PRN (22:02)
--- NOTE | 2022-02-18 22:04 | P.PN ---
Progress Note - Text Progress Note Date: 02/18/22 The patient's troponin increased significantly from 0.295 on admission to 2.720. EKG was reviewed with minimal T-wave changes from prior EKG from 2016. The patient denied experiencing chest discomfort or shortness of breath. The case was discussed with cardiology on-call doctor Arminda recommended initiation of heparin infusion with low-dose aspirin. He also recommended an echocardiogram for the morning with cardiology on consult.
[2022-02-18] MEDS: LEVOTHYROXINE 100 MCG TAB PO SCH (22:26)
[2022-02-18] MEDS: HEPARIN SOD,PORK IN 0.45% NACL 25,000 UNIT in 0.45% NACL 1 250ML.BAG IV SCH (22:39)
[2022-02-18 22:58] LABS: Calcium 9.5 mg/dL (8.4-10.2); Magnesium 2.3 mg/dL (1.6-2.3); Phosphorus 3.5 mg/dL (2.5-4.5); Potassium 4.3 mmol/L (3.5-5.1)
[2022-02-18 23:21] LABS: Basophils # (A) 0.1 k/uL (0-0.2); Basophils % (A) 0 %; Eosinophils % (A) 0 %; HCT 35.8 % (39.0-53.0); HGB 11.8 gm/dL (13.0-17.5); Lymphocytes # (A) 2.2 k/uL (1.0-4.8); Lymphocytes % (A) 12 %; MCH 32.9 pg (25.0-35.0); MCHC 32.9 g/dL (31.0-37.0); Mean Platelet Volume 10.4; Monocytes % (A) 6 %; Neutrophils # (A) 14.1 k/uL (1.3-7.7); Neutrophils % (A) 80 %; Platelet Count 188 k/uL (150-450); RBC 3.59 m/uL (4.30-5.90); RDW 12.3 % (11.5-15.5); WBC 17.6 k/uL (3.8-10.6)
[2022-02-18 23:22] LABS: MCV 99.9 fL (80.0-100.0)
[2022-02-18 23:44] LABS: Partial Thromboplastin Time 21.1 sec (22.0-30.0); Prothrombin Time 10.9 sec (9.0-12.0)
[2022-02-19 01:00] LABS: Glucose,Whole Blood 498 mg/dL (70-110)
[2022-02-19 02:16] LABS: Glucose,Whole Blood 444 mg/dL (70-110)
[2022-02-19] MEDS: INSULIN REGULAR 100 UNIT in SODIUM CHLORIDE 0.9% 100 ML IV SCH (02:22)
[2022-02-19 03:20] LABS: Glucose,Whole Blood 411 mg/dL (70-110)
[2022-02-19] MEDS: SODIUM CHLORIDE 0.9% 1,000 ML IV SCH ×4 (03:31→20:56)
[2022-02-19 04:31] LABS: Glucose,Whole Blood 326 mg/dL (70-110)
[2022-02-19 05:33] LABS: Glucose,Whole Blood 286 mg/dL (70-110)
[2022-02-19 05:58] LABS: Basophils % (A) 0 %; Eosinophils # (A) 0.1 k/uL (0-0.7); Eosinophils % (A) 0 %; HCT 34.3 % (39.0-53.0); HGB 11.4 gm/dL (13.0-17.5); Lymphocytes # (A) 2.1 k/uL (1.0-4.8); Lymphocytes % (A) 11 %; MCH 32.6 pg (25.0-35.0); MCHC 33.4 g/dL (31.0-37.0); MCV 97.8 fL (80.0-100.0); Mean Platelet Volume 10.3; Monocytes % (A) 5 %; Neutrophils # (A) 15.5 k/uL (1.3-7.7); Neutrophils % (A) 82 %; Platelet Count 163 k/uL (150-450); RDW 12.4 % (11.5-15.5); WBC 18.9 k/uL (3.8-10.6)
[2022-02-19 06:02] LABS: INR 1.2 (<1.2); Partial Thromboplastin Time 56.9 sec (22.0-30.0)
[2022-02-19] MEDS: D5-0.45% NACL WITH KCL 20MEQ/L 1,000 ML IV SCH ×2 (06:02→08:37)
[2022-02-19 06:09] LABS: Calcium 9.1 mg/dL (8.4-10.2); Magnesium 2.3 mg/dL (1.6-2.3); Phosphorus 2.2 mg/dL (2.5-4.5); Potassium 4.1 mmol/L (3.5-5.1)
[2022-02-19 06:31] LABS: Glucose,Whole Blood 307 mg/dL (70-110)
[2022-02-19 07:39] LABS: Glucose,Whole Blood 426 mg/dL (70-110)
[2022-02-19] MEDS ORDERED: SODIUM CHLORIDE 0.9% 1,000 ML IV SCH (08:00)
[2022-02-19 08:35] LABS: Glucose,Whole Blood 195 mg/dL (70-110)
[2022-02-19] MEDS ORDERED: SODIUM CHLORIDE 0.9% 1,000 ML IV ONE (08:39)
--- NOTE | 2022-02-19 09:35 | P.PN ---
Subjective Progress Note Date: 02/26/22 Patient seen this morning. He denies any acute complaints. He denies any chest pain. He denies any nausea vomiting. He is complaining of a sore throat this morning. Objective - Vital Signs Vital signs: Vital Signs Temp 97.7 F 02/19/22 05:33 Pulse 73 02/19/22 08:44 Resp 20 02/19/22 08:44 BP 84/64 02/19/22 08:44 Pulse Ox 95 02/19/22 08:44 FiO2 Intake & Output 02/18/22 02/19/22 02/19/22 18:59 06:59 18:59 Intake Total 129.762 19.828 Balance 129.762 19.828 Weight 95.254 kg Intake: Intake, IV Titration 129.762 19.828 Amount Insulin Regular 100 unit 129.762 19.828 In Sodium Chloride 0.9% 100 ml @ 0.1 UNITS/KG/HR 9.621 mls/hr IV .[id number] FORMERLY [facility], 1928–1983 Rx#:[id number] - Exam General examination - Alert and Oriented 3 in NAD Heart - + S1S2 no murmurs Lungs - Clear to auscultation Abdomen soft NT ND +ve BS Extremities - No edema STATUS CONTROLLER - Moving all 4 extremities spontaneously Psych - Calm and cooperative - Labs CBC & Chem 7: 02/19/22 05:40 02/19/22 05:40 Labs: Abnormal Lab Results - Last 24 Hours (Table) 02/18/22 02/18/22 02/18/22 Range/Units 12:04 12:06 12:29 WBC 16.3 H (3.8-10.6) k/uL RBC 4.24 L (4.30-5.90) m/uL Hgb (13.0-17.5) gm/dL Hct (39.0-53.0) % MCV 107.3 H (80.0-100.0) fL MCHC 30.7 L (31.0-37.0) g/dL Neutrophils # 14.2 H (1.3-7.7) k/uL PT (9.0-12.0) sec INR (<1.2) APTT (22.0-30.0) sec ABG pH (7.35-7.45) ABG pCO2 (35-45) mmHg ABG pO2 (83-108) mmHg ABG HCO3 (21-25) mmol/L ABG Total CO2 (19-24) mmol/L ABG O2 Saturation (94-97) % VBG pH (7.31-7.41) VBG pCO2 (37-51) mmHg VBG HCO3 (24-28) mmol/L Sodium (137-145) mmol/L Chloride (98-107) mmol/L Carbon Dioxide (22-30) mmol/L BUN (9-20) mg/dL Creatinine (0.66-1.25) mg/dL Glucose (74-99) mg/dL POC Glucose (mg/dL) >600 H >600 H (70-110) mg/dL Plasma Lactic Acid Bryn (0.7-2.0) mmol/L Calcium (8.4-10.2) mg/dL Phosphorus (2.5-4.5) mg/dL Total Bilirubin (0.2-1.3) mg/dL Alkaline Phosphatase (38-126) U/L Troponin I (0.000-0.034) ng/mL Total Protein (6.3-8.2) g/dL TSH (0.465-4.680) mIU/L Urine Glucose (UA) (Negative) Urine Ketones (Negative) 02/18/22 02/18/22 02/18/22 Range/Units 12:29 12:29 12:29 WBC (3.8-10.6) k/uL RBC (4.30-5.90) m/uL Hgb (13.0-17.5) gm/dL Hct (39.0-53.0) % MCV (80.0-100.0) fL MCHC (31.0-37.0) g/dL Neutrophils # (1.3-7.7) k/uL PT (9.0-12.0) sec INR (<1.2) APTT (22.0-30.0) sec ABG pH (7.35-7.45) ABG pCO2 (35-45) mmHg ABG pO2 (83-108) mmHg ABG HCO3 (21-25) mmol/L ABG Total CO2 (19-24) mmol/L ABG O2 Saturation (94-97) % VBG pH (7.31-7.41) VBG pCO2 (37-51) mmHg VBG HCO3 (24-28) mmol/L Sodium 123 L (137-145) mmol/L Chloride 79 L (98-107) mmol/L Carbon Dioxide 10 L (22-30) mmol/L BUN 43 H (9-20) mg/dL Creatinine 2.16 H (0.66-1.25) mg/dL Glucose 1056 H* (74-99) mg/dL POC Glucose (mg/dL) (70-110) mg/dL Plasma Lactic Acid Bryn 5.8 H* (0.7-2.0) mmol/L Calcium 10.6 H (8.4-10.2) mg/dL Phosphorus (2.5-4.5) mg/dL Total Bilirubin 1.7 H (0.2-1.3) mg/dL Alkaline Phosphatase 159 H (38-126) U/L Troponin I 0.066 H* (0.000-0.034) ng/mL Total Protein 6.2 L (6.3-8.2) g/dL TSH 10.100 H (0.465-4.680) mIU/L Urine Glucose (UA) (Negative) Urine Ketones (Negative) 02/18/22 02/18/22 02/18/22 Range/Units 12:29 13:20 14:47 WBC (3.8-10.6) k/uL RBC (4.30-5.90) m/uL Hgb (13.0-17.5) gm/dL Hct (39.0-53.0) % MCV (80.0-100.0) fL MCHC (31.0-37.0) g/dL Neutrophils # (1.3-7.7) k/uL PT (9.0-12.0) sec INR (<1.2) APTT 21.7 L (22.0-30.0) sec ABG pH 7.24 L (7.35-7.45) ABG pCO2 25 L (35-45) mmHg ABG pO2 77 L (83-108) mmHg ABG HCO3 11 L (21-25) mmol/L ABG Total CO2 11 L (19-24) mmol/L ABG O2 Saturation 93.1 L (94-97) % VBG pH 7.20 L* (7.31-7.41) VBG pCO2 33 L (37-51) mmHg VBG HCO3 12 L (24-28) mmol/L Sodium (137-145) mmol/L Chloride (98-107) mmol/L Carbon Dioxide (22-30) mmol/L BUN (9-20) mg/dL Creatinine (0.66-1.25) mg/dL Glucose (74-99) mg/dL POC Glucose (mg/dL) (70-110) mg/dL Plasma Lactic Acid Bryn (0.7-2.0) mmol/L Calcium (8.4-10.2) mg/dL Phosphorus (2.5-4.5) mg/dL Total Bilirubin (0.2-1.3) mg/dL Alkaline Phosphatase (38-126) U/L Troponin I (0.000-0.034) ng/mL Total Protein (6.3-8.2) g/dL TSH (0.465-4.680) mIU/L Urine Glucose (UA) (Negative) Urine Ketones (Negative) 02/18/22 02/18/22 02/18/22 Range/Units 15:49 15:49 15:49 WBC (3.8-10.6) k/uL RBC (4.30-5.90) m/uL Hgb (13.0-17.5) gm/dL Hct (39.0-53.0) % MCV (80.0-100.0) fL MCHC (31.0-37.0) g/dL Neutrophils # (1.3-7.7) k/uL PT (9.0-12.0) sec INR (<1.2) APTT (22.0-30.0) sec ABG pH (7.35-7.45) ABG pCO2 (35-45) mmHg ABG pO2 (83-108) mmHg ABG HCO3 (21-25) mmol/L ABG Total CO2 (19-24) mmol/L ABG O2 Saturation (94-97) % VBG pH (7.31-7.41) VBG pCO2 (37-51) mmHg VBG HCO3 (24-28) mmol/L Sodium 126 L (137-145) mmol/L Chloride 85 L (98-107) mmol/L Carbon Dioxide 9 L* (22-30) mmol/L BUN 49 H (9-20) mg/dL Creatinine 2.03 H (0.66-1.25) mg/dL Glucose 1014 H* (74-99) mg/dL POC Glucose (mg/dL) (70-110) mg/dL Plasma Lactic Acid Bryn 3.8 H* (0.7-2.0) mmol/L Calcium (8.4-10.2) mg/dL Phosphorus 8.0 H (2.5-4.5) mg/dL Total Bilirubin (0.2-1.3) mg/dL Alkaline Phosphatase (38-126) U/L Troponin I (0.000-0.034) ng/mL Total Protein (6.3-8.2) g/dL TSH (0.465-4.680) mIU/L Urine Glucose (UA) (Negative) Urine Ketones (Negative) 02/18/22 02/18/22 02/18/22 Range/Units 15:49 18:47 20:17 WBC (3.8-10.6) k/uL RBC (4.30-5.90) m/uL Hgb (13.0-17.5) gm/dL Hct (39.0-53.0) % MCV (80.0-100.0) fL MCHC (31.0-37.0) g/dL Neutrophils # (1.3-7.7) k/uL PT (9.0-12.0) sec INR (<1.2) APTT (22.0-30.0) sec ABG pH (7.35-7.45) ABG pCO2 (35-45) mmHg ABG pO2 (83-108) mmHg ABG HCO3 (21-25) mmol/L ABG Total CO2 (19-24) mmol/L ABG O2 Saturation (94-97) % VBG pH (7.31-7.41) VBG pCO2 (37-51) mmHg VBG HCO3 (24-28) mmol/L Sodium 128 L (137-145) mmol/L Chloride 90 L (98-107) mmol/L Carbon Dioxide 13 L (22-30) mmol/L BUN 61 H (9-20) mg/dL Creatinine 1.99 H (0.66-1.25) mg/dL Glucose 850 H* 713 H* (74-99) mg/dL POC Glucose (mg/dL) (70-110) mg/dL Plasma Lactic Acid Bryn (0.7-2.0) mmol/L Calcium (8.4-10.2) mg/dL Phosphorus (2.5-4.5) mg/dL Total Bilirubin (0.2-1.3) mg/dL Alkaline Phosphatase (38-126) U/L Troponin I 0.295 H* (0.000-0.034) ng/mL Total Protein (6.3-8.2) g/dL TSH (0.465-4.680) mIU/L Urine Glucose (UA) (Negative) Urine Ketones (Negative) 02/18/22 02/18/22 02/18/22 Range/Units 20:17 20:30 21:18 WBC (3.8-10.6) k/uL RBC (4.30-5.90) m/uL Hgb (13.0-17.5) gm/dL Hct (39.0-53.0) % MCV (80.0-100.0) fL MCHC (31.0-37.0) g/dL Neutrophils # (1.3-7.7) k/uL PT (9.0-12.0) sec INR (<1.2) APTT (22.0-30.0) sec ABG pH (7.35-7.45) ABG pCO2 (35-45) mmHg ABG pO2 (83-108) mmHg ABG HCO3 (21-25) mmol/L ABG Total CO2 (19-24) mmol/L ABG O2 Saturation (94-97) % VBG pH (7.31-7.41) VBG pCO2 (37-51) mmHg VBG HCO3 (24-28) mmol/L Sodium (137-145) mmol/L Chloride (98-107) mmol/L Carbon Dioxide (22-30) mmol/L BUN (9-20) mg/dL Creatinine (0.66-1.25) mg/dL Glucose 662 H* (74-99) mg/dL POC Glucose (mg/dL) (70-110) mg/dL Plasma Lactic Acid Bryn (0.7-2.0) mmol/L Calcium (8.4-10.2) mg/dL Phosphorus (2.5-4.5) mg/dL Total Bilirubin (0.2-1.3) mg/dL Alkaline Phosphatase (38-126) U/L Troponin I 2.720 H* (0.000-0.034) ng/mL Total Protein (6.3-8.2) g/dL TSH (0.465-4.680) mIU/L Urine Glucose (UA) 4+ H (Negative) Urine Ketones 2+ H (Negative) 02/18/22 02/18/22 02/18/22 Range/Units 22:36 22:36 22:36 WBC 17.6 H (3.8-10.6) k/uL RBC 3.59 L (4.30-5.90) m/uL Hgb 11.8 L (13.0-17.5) gm/dL Hct 35.8 L (39.0-53.0) % MCV (80.0-100.0) fL MCHC (31.0-37.0) g/dL Neutrophils # 14.1 H (1.3-7.7) k/uL PT (9.0-12.0) sec INR (<1.2) APTT 21.1 L (22.0-30.0) sec ABG pH (7.35-7.45) ABG pCO2 (35-45) mmHg ABG pO2 (83-108) mmHg ABG HCO3 (21-25) mmol/L ABG Total CO2 (19-24) mmol/L ABG O2 Saturation (94-97) % VBG pH (7.31-7.41) VBG pCO2 (37-51) mmHg VBG HCO3 (24-28) mmol/L Sodium 127 L (137-145) mmol/L Chloride 92 L (98-107) mmol/L Carbon Dioxide 15 L (22-30) mmol/L BUN 71 H (9-20) mg/dL Creatinine 1.78 H (0.66-1.25) mg/dL Glucose 613 H* (74-99) mg/dL POC Glucose (mg/dL) (70-110) mg/dL Plasma Lactic Acid Bryn (0.7-2.0) mmol/L Calcium (8.4-10.2) mg/dL Phosphorus (2.5-4.5) mg/dL Total Bilirubin (0.2-1.3) mg/dL Alkaline Phosphatase (38-126) U/L Troponin I (0.000-0.034) ng/mL Total Protein (6.3-8.2) g/dL TSH (0.465-4.680) mIU/L Urine Glucose (UA) (Negative) Urine Ketones (Negative) 02/18/22 02/19/22 02/19/22 Range/Units 23:25 00:59 02:13 WBC (3.8-10.6) k/uL RBC (4.30-5.90) m/uL Hgb (13.0-17.5) gm/dL Hct (39.0-53.0) % MCV (80.0-100.0) fL MCHC (31.0-37.0) g/dL Neutrophils # (1.3-7.7) k/uL PT (9.0-12.0) sec INR (<1.2) APTT (22.0-30.0) sec ABG pH (7.35-7.45) ABG pCO2 (35-45) mmHg ABG pO2 (83-108) mmHg ABG HCO3 (21-25) mmol/L ABG Total CO2 (19-24) mmol/L ABG O2 Saturation (94-97) % VBG pH (7.31-7.41) VBG pCO2 (37-51) mmHg VBG HCO3 (24-28) mmol/L Sodium (137-145) mmol/L Chloride (98-107) mmol/L Carbon Dioxide (22-30) mmol/L BUN (9-20) mg/dL Creatinine (0.66-1.25) mg/dL Glucose 544 H* (74-99) mg/dL POC Glucose (mg/dL) 498 H 444 H (70-110) mg/dL Plasma Lactic Acid Bryn (0.7-2.0) mmol/L Calcium (8.4-10.2) mg/dL Phosphorus (2.5-4.5) mg/dL Total Bilirubin (0.2-1.3) mg/dL Alkaline Phosphatase (38-126) U/L Troponin I (0.000-0.034) ng/mL Total Protein (6.3-8.2) g/dL TSH (0.465-4.680) mIU/L Urine Glucose (UA) (Negative) Urine Ketones (Negative) 02/19/22 02/19/22 02/19/22 Range/Units 03:19 04:28 05:29 WBC (3.8-10.6) k/uL RBC (4.30-5.90) m/uL Hgb (13.0-17.5) gm/dL Hct (39.0-53.0) % MCV (80.0-100.0) fL MCHC (31.0-37.0) g/dL Neutrophils # (1.3-7.7) k/uL PT (9.0-12.0) sec INR (<1.2) APTT (22.0-30.0) sec ABG pH (7.35-7.45) ABG pCO2 (35-45) mmHg ABG pO2 (83-108) mmHg ABG HCO3 (21-25) mmol/L ABG Total CO2 (19-24) mmol/L ABG O2 Saturation (94-97) % VBG pH (7.31-7.41) VBG pCO2 (37-51) mmHg VBG HCO3 (24-28) mmol/L Sodium (137-145) mmol/L Chloride (98-107) mmol/L Carbon Dioxide (22-30) mmol/L BUN (9-20) mg/dL Creatinine (0.66-1.25) mg/dL Glucose (74-99) mg/dL POC Glucose (mg/dL) 411 H 326 H 286 H (70-110) mg/dL Plasma Lactic Acid Bryn (0.7-2.0) mmol/L Calcium (8.4-10.2) mg/dL Phosphorus (2.5-4.5) mg/dL Total Bilirubin (0.2-1.3) mg/dL Alkaline Phosphatase (38-126) U/L Troponin I (0.000-0.034) ng/mL Total Protein (6.3-8.2) g/dL TSH (0.465-4.680) mIU/L Urine Glucose (UA) (Negative) Urine Ketones (Negative) 02/19/22 02/19/22 02/19/22 Range/Units 05:40 05:40 05:40 WBC 18.9 H (3.8-10.6) k/uL RBC 3.50 L (4.30-5.90) m/uL Hgb 11.4 L (13.0-17.5) gm/dL Hct 34.3 L (39.0-53.0) % MCV (80.0-100.0) fL MCHC (31.0-37.0) g/dL Neutrophils # 15.5 H (1.3-7.7) k/uL PT 13.0 H (9.0-12.0) sec INR 1.2 H (<1.2) APTT 56.9 H (22.0-30.0) sec ABG pH (7.35-7.45) ABG pCO2 (35-45) mmHg ABG pO2 (83-108) mmHg ABG HCO3 (21-25) mmol/L ABG Total CO2 (19-24) mmol/L ABG O2 Saturation (94-97) % VBG pH (7.31-7.41) VBG pCO2 (37-51) mmHg VBG HCO3 (24-28) mmol/L Sodium 131 L (137-145) mmol/L Chloride (98-107) mmol/L Carbon Dioxide 20 L (22-30) mmol/L BUN 91 H (9-20) mg/dL Creatinine 1.47 H (0.66-1.25) mg/dL Glucose 286 H (74-99) mg/dL POC Glucose (mg/dL) (70-110) mg/dL Plasma Lactic Acid Bryn (0.7-2.0) mmol/L Calcium (8.4-10.2) mg/dL Phosphorus 2.2 L (2.5-4.5) mg/dL Total Bilirubin (0.2-1.3) mg/dL Alkaline Phosphatase (38-126) U/L Troponin I (0.000-0.034) ng/mL Total Protein (6.3-8.2) g/dL TSH (0.465-4.680) mIU/L Urine Glucose (UA) (Negative) Urine Ketones (Negative) 02/19/22 02/19/22 02/19/22 Range/Units 06:29 07:36 08:34 WBC (3.8-10.6) k/uL RBC (4.30-5.90) m/uL Hgb (13.0-17.5) gm/dL Hct (39.0-53.0) % MCV (80.0-100.0) fL MCHC (31.0-37.0) g/dL Neutrophils # (1.3-7.7) k/uL PT (9.0-12.0) sec INR (<1.2) APTT (22.0-30.0) sec ABG pH (7.35-7.45) ABG pCO2 (35-45) mmHg ABG pO2 (83-108) mmHg ABG HCO3 (21-25) mmol/L ABG Total CO2 (19-24) mmol/L ABG O2 Saturation (94-97) % VBG pH (7.31-7.41) VBG pCO2 (37-51) mmHg VBG HCO3 (24-28) mmol/L Sodium (137-145) mmol/L Chloride (98-107) mmol/L Carbon Dioxide (22-30) mmol/L BUN (9-20) mg/dL Creatinine (0.66-1.25) mg/dL Glucose (74-99) mg/dL POC Glucose (mg/dL) 307 H 426 H 195 H (70-110) mg/dL Plasma Lactic Acid Bryn (0.7-2.0) mmol/L Calcium (8.4-10.2) mg/dL Phosphorus (2.5-4.5) mg/dL Total Bilirubin (0.2-1.3) mg/dL Alkaline Phosphatase (38-126) U/L Troponin I (0.000-0.034) ng/mL Total Protein (6.3-8.2) g/dL TSH (0.465-4.680) mIU/L Urine Glucose (UA) (Negative) Urine Ketones (Negative) Assessment and Plan Assessment: DKA Metabolic acidosis Lactic acidosis -DKA protocol -This morning anion gap is closed and bicarb is 20 -Patient currently nothing by mouth as we are waiting for recommendations from cardiology regarding possible heart catheterization -If no plans for heart catheterization will switch patient to subcu insulin -Admit to ICU -lawn care worker consult as patient will need home care as well as glucometer Leukocytosis likely reactive Chest x-ray negative for pneumonia UA negative for UTI Patient is afebrile Patient does have a sore throat so we'll check for COVID-19 Non-ST elevation AK Patient denying any chest pain Troponin continuing to increase We'll start patient heparin drip. Check echocardiogram Awaiting further recommendations from cardiology Acute kidney injury Secondary to the above -Patient given aggressive fluids -Hold nephrotoxic agents which include lisinopril and metformin -Trend BMP -Improving Hypothyroidism TSH is elevated and T4 within normal limits Resume home dose levothyroxine Patient will need a repeat TSH as outpatient Hypertension Patient's blood pressures on the low side this morning so will hold off on amlodipine Hyperlipidemia Resume statin BPH Resume tamsulosin CODE STATUS:full code DVT prophylaxis: Subcu ggt Anticipated length of stay > than [address]: home
[2022-02-19 09:42] LABS: Glucose,Whole Blood 263 mg/dL (70-110)
[2022-02-19 10:37] LABS: Glucose,Whole Blood 161 mg/dL (70-110)
[2022-02-19 11:50] LABS: Glucose,Whole Blood 106 mg/dL (70-110)
[2022-02-19] MEDS ORDERED: DEXTROSE 50% SYRINGE 50 ML IVP PRN ×2 (12:00)
[2022-02-19] MEDS: INSULIN ASPART (NovoLOG) 100 UNIT/ML VIAL SQ SCH ×5 (12:47→20:56)
--- NOTE | 2022-02-19 13:00 | P.CNPUL ---
History of Present Illness Consult date: 02/19/22 Requesting physician: Layr Hall Reason for consult: other Chief complaint: Diabetic ketoacidosis. History of present illness: Pulmonary/critical care consult dated 02/19/2022. 77-year-old male, who presented to the emergency department on February 18, with weakness and dizziness. The patient was seen in the emergency room, by one of the ER physicians, and was discovered to have diabetic ketoacidosis. The patient's blood sugar was close to 1000. The patient had a very significant a nion gap. The pH was only 7.2. I was hoping the patient could be turned around, and go to the general medical floor, but, when I went down there today to see the patient, the patient was hypotensive and was receiving 1 L of saline. The anion gap closed 11. The bicarbonate concentration was up to 20. The glucose was 195. The patient had elevated troponins and, was on IV heparin. He was on an insulin drip at 9.6 units an hour. The blood pressure was only 80/50. White count 18.9, hemoglobin 11.4, hematocrit 34.3, and platelet count 263,000. PT 13, INR 1.2, and PTT was 56.9. Blood gases from yesterday show pO2 77, pCO2 25, and a pH of 7.4. Sodium 131, potassium 4.1, chlorides 100, CO2 20, anion gap 11, BUN 91, and creatinine 1.47. Troponins were 0.066, 0.295, and 2.720. TSH was elevated at 10.1. Chest x-ray was normal. Review of Systems REVIEW OF SYSTEMS: CONSTITUTIONAL: Weakness. NEUROLOGIC: Dizziness. HEENT: [ Negative.] CARDIAC: [Negative.] PULMONARY: [Negative.] GI: [Negative.] : [Negative.] RHEUMATOLOGIC: [ Negative.] IMMUNOLOGIC: [ Negative.] ENDOCRINE: [Negative. ] DERMATOLOGIC: [Negative.] Past Medical History Past Medical History: GERD/Reflux, Hyperlipidemia, Thyroid Disorder Additional Past Medical History / Comment(s): occ heartburn, History of Any Multi-Drug Resistant Organisms: None Reported Past Surgical History: Cholecystectomy Past Anesthesia/Blood Transfusion Reactions: No Reported Reaction Past Psychological History: No Psychological Hx Reported Past Alcohol Use History: None Reported Past Drug Use History: None Reported - Past Family History Mother Family Medical History: Cancer Medications and Allergies Home Medications Medication Instructions Recorded Confirmed Type Aspirin 81 mg PO HS 02/14/14 02/18/22 History Atorvastatin [Lipitor] 80 mg PO HS 02/14/14 02/18/22 History Levothyroxine Sodium [Synthroid] 100 mcg PO HS 02/14/14 02/18/22 History Cholecalciferol [Vitamin D3 (25 50 mcg PO HS 02/18/22 02/18/22 History Mcg = 1000 Iu)] Empagliflozin [Jardiance] 25 mg PO HS 02/18/22 02/18/22 History Ibuprofen [Motrin] 600 mg PO Q8HR PRN 02/18/22 02/18/22 History Insulin Glargine,Hum.rec.anlog 60 units SQ HS 02/18/22 02/18/22 History [Insulin Glargine Solostar] Pioglitazone [Actos] 30 mg PO HS 02/18/22 02/18/22 History Tamsulosin HCl [Flomax] 0.4 mg PO HS 02/18/22 02/18/22 History amLODIPine [Norvasc] 5 mg PO HS 02/18/22 02/18/22 History lisinopriL [Zestril] 20 mg PO HS 02/18/22 02/18/22 History metFORMIN HCL [Glucophage] 1,000 mg PO HS 02/18/22 02/18/22 History Allergies Allergy/AdvReac Type Severity Reaction Status Date / Time No Known Allergies Allergy Verified 02/18/22 15:01 Physical Exam Osteopathic Statement: *. No significant issues noted on an osteopathic structural exam other than those noted in the History and Physical/Consult. Vitals: Vital Signs Temp Pulse Pulse Resp BP Pulse Ox 02/19/22 12:09 62 18 124/85 97 02/19/22 10:54 75 21 100/60 96 02/19/22 09:43 74 20 82/51 95 02/19/22 08:44 73 20 84/64 95 02/19/22 07:29 72 24 88/39 94 L 02/19/22 05:33 97.7 F 81 19 86/62 91 L 02/19/22 04:32 97.9 F 85 19 87/51 97 02/19/22 03:27 97.8 F 98 16 89/55 97 02/19/22 01:44 89 02/19/22 01:43 89 19 94/52 93 L 02/19/22 01:04 98 14 83/48 93 L 02/18/22 23:19 97.7 F 90 20 90/59 93 L 02/18/22 22:19 97.6 F 80 20 94/49 95 02/18/22 20:04 94 83/47 93 L 02/18/22 17:11 96 18 86/51 98 02/18/22 14:53 90 18 105/67 96 Intake and Output 02/18/22 02/19/22 02/19/22 22:59 06:59 14:59 Intake Total 129.762 19.832 Balance 129.762 19.832 Intake: Intake, IV Titration 129.762 19.832 Amount Insulin Regular 100 unit 129.762 19.832 In Sodium Chloride 0.9% 100 ml @ 0.1 UNITS/KG/HR 9.621 mls/hr IV .[id number] PENDING SALE TO [facility] Rx#:[id number] No acute distress, oriented 3. HEENT examination is grossly unremarkable. Neck supple. Full range of motion. No adenopathy thyromegaly or neck vein d istention. Cardiovascular examination reveals regular rhythm rate. S1-S2 normal. No S3 or S4. No discernible murmur noted. Heart rate 62 bpm. Lungs reveal clear breath sounds. Breath sounds are equal bilaterally. No adventitious lung sounds including wheezes rhonchi or crackles. Room air sa turation is 97%. Abdomen soft bowel sounds are heard. No masses or tenderness. Extremities are intact. No cyanosis clubbing or edema. Skin is without rash or lesion. Neurologic examination is brief but nonfocal. Results - Laboratory Findings CBC and BMP: 02/19/22 05:40 02/19/22 05:40 ABG ABG pH 7.24 (7.35-7.45) L 02/18/22 13:20 ABG pCO2 25 mmHg (35-45) L 02/18/22 13:20 ABG pO2 77 mmHg (83-108) L 02/18/22 13:20 ABG O2 Saturation 93.1 % (94-97) L 02/18/22 13:20 PT/INR, D-dimer PT 13.0 sec (9.0-12.0) H 02/19/22 05:40 INR 1.2 (<1.2) H 02/19/22 05:40 Abnormal lab findings: Abnormal Labs 02/18/22 02/18/22 02/18/22 12:04 12:06 12:29 WBC 16.3 H RBC 4.24 L Hgb Hct MCV 107.3 H MCHC 30.7 L Neutrophils # 14.2 H PT INR APTT ABG pH ABG pCO2 ABG pO2 ABG HCO3 ABG Total CO2 ABG O2 Saturation VBG pH VBG pCO2 VBG HCO3 Sodium Chloride Carbon Dioxide BUN Creatinine Glucose POC Glucose (mg/dL) >600 H >600 H Hemoglobin A1c Plasma Lactic Acid Bryn Calcium Phosphorus Total Bilirubin Alkaline Phosphatase Troponin I Total Protein TSH Urine Glucose (UA) Urine Ketones 02/18/22 02/18/22 02/18/22 12:29 12:29 12:29 WBC RBC Hgb Hct MCV MCHC Neutrophils # PT INR APTT ABG pH ABG pCO2 ABG pO2 ABG HCO3 ABG Total CO2 ABG O2 Saturation VBG pH VBG pCO2 VBG HCO3 Sodium 123 L Chloride 79 L Carbon Dioxide 10 L BUN 43 H Creatinine 2.16 H Glucose 1056 H* POC Glucose (mg/dL) Hemoglobin A1c Plasma Lactic Acid Bryn 5.8 H* Calcium 10.6 H Phosphorus Total Bilirubin 1.7 H Alkaline Phosphatase 159 H Troponin I 0.066 H* Total Protein 6.2 L TSH 10.100 H Urine Glucose (UA) Urine Ketones 02/18/22 02/18/22 02/18/22 12:29 13:20 14:47 WBC RBC Hgb Hct MCV MCHC Neutrophils # PT INR APTT 21.7 L ABG pH 7.24 L ABG pCO2 25 L ABG pO2 77 L ABG HCO3 11 L ABG Total CO2 11 L ABG O2 Saturation 93.1 L VBG pH 7.20 L* VBG pCO2 33 L VBG HCO3 12 L Sodium Chloride Carbon Dioxide BUN Creatinine Glucose POC Glucose (mg/dL) Hemoglobin A1c Plasma Lactic Acid Bryn Calcium Phosphorus Total Bilirubin Alkaline Phosphatase Troponin I Total Protein TSH Urine Glucose (UA) Urine Ketones 02/18/22 02/18/22 02/18/22 15:49 15:49 15:49 WBC RBC Hgb Hct MCV MCHC Neutrophils # PT INR APTT ABG pH ABG pCO2 ABG pO2 ABG HCO3 ABG Total CO2 ABG O2 Saturation VBG pH VBG pCO2 VBG HCO3 Sodium 126 L Chloride 85 L Carbon Dioxide 9 L* BUN 49 H Creatinine 2.03 H Glucose 1014 H* POC Glucose (mg/dL) Hemoglobin A1c Plasma Lactic Acid Bryn 3.8 H* Calcium Phosphorus 8.0 H Total Bilirubin Alkaline Phosphatase Troponin I Total Protein TSH Urine Glucose (UA) Urine Ketones 02/18/22 02/18/22 02/18/22 15:49 18:47 20:17 WBC RBC Hgb Hct MCV MCHC Neutrophils # PT INR APTT ABG pH ABG pCO2 ABG pO2 ABG HCO3 ABG Total CO2 ABG O2 Saturation VBG pH VBG pCO2 VBG HCO3 Sodium 128 L Chloride 90 L Carbon Dioxide 13 L BUN 61 H Creatinine 1.99 H Glucose 850 H* 713 H* POC Glucose (mg/dL) Hemoglobin A1c Plasma Lactic Acid Bryn Calcium Phosphorus Total Bilirubin Alkaline Phosphatase Troponin I 0.295 H* Total Protein TSH Urine Glucose (UA) Urine Ketones 02/18/22 02/18/22 02/18/22 20:17 20:30 21:18 WBC RBC Hgb Hct MCV MCHC Neutrophils # PT INR APTT ABG pH ABG pCO2 ABG pO2 ABG HCO3 ABG Total CO2 ABG O2 Saturation VBG pH VBG pCO2 VBG HCO3 Sodium Chloride Carbon Dioxide BUN Creatinine Glucose 662 H* POC Glucose (mg/dL) Hemoglobin A1c Plasma Lactic Acid Bryn Calcium Phosphorus Total Bilirubin Alkaline Phosphatase Troponin I 2.720 H* Total Protein TSH Urine Glucose (UA) 4+ H Urine Ketones 2+ H 02/18/22 02/18/22 02/18/22 22:36 22:36 22:36 WBC 17.6 H RBC 3.59 L Hgb 11.8 L Hct 35.8 L MCV MCHC Neutrophils # 14.1 H PT INR APTT 21.1 L ABG pH ABG pCO2 ABG pO2 ABG HCO3 ABG Total CO2 ABG O2 Saturation VBG pH VBG pCO2 VBG HCO3 Sodium 127 L Chloride 92 L Carbon Dioxide 15 L BUN 71 H Creatinine 1.78 H Glucose 613 H* POC Glucose (mg/dL) Hemoglobin A1c Plasma Lactic Acid Bryn Calcium Phosphorus Total Bilirubin Alkaline Phosphatase Troponin I Total Protein TSH Urine Glucose (UA) Urine Ketones 02/18/22 02/19/22 02/19/22 23:25 00:59 02:13 WBC RBC Hgb Hct MCV MCHC Neutrophils # PT INR APTT ABG pH ABG pCO2 ABG pO2 ABG HCO3 ABG Total CO2 ABG O2 Saturation VBG pH VBG pCO2 VBG HCO3 Sodium Chloride Carbon Dioxide BUN Creatinine Glucose 544 H* POC Glucose (mg/dL) 498 H 444 H Hemoglobin A1c Plasma Lactic Acid Bryn Calcium Phosphorus Total Bilirubin Alkaline Phosphatase Troponin I Total Protein TSH Urine Glucose (UA) Urine Ketones 02/19/22 02/19/22 02/19/22 03:19 04:28 05:29 WBC RBC Hgb Hct MCV MCHC Neutrophils # PT INR APTT ABG pH ABG pCO2 ABG pO2 ABG HCO3 ABG Total CO2 ABG O2 Saturation VBG pH VBG pCO2 VBG HCO3 Sodium Chloride Carbon Dioxide BUN Creatinine Glucose POC Glucose (mg/dL) 411 H 326 H 286 H Hemoglobin A1c Plasma Lactic Acid Bryn Calcium Phosphorus Total Bilirubin Alkaline Phosphatase Troponin I Total Protein TSH Urine Glucose (UA) Urine Ketones 02/19/22 02/19/22 02/19/22 05:40 05:40 05:40 WBC RBC Hgb Hct MCV MCHC Neutrophils # PT 13.0 H INR 1.2 H APTT 56.9 H ABG pH ABG pCO2 ABG pO2 ABG HCO3 ABG Total CO2 ABG O2 Saturation VBG pH VBG pCO2 VBG HCO3 Sodium 131 L Chloride Carbon Dioxide 20 L BUN 91 H Creatinine 1.47 H Glucose 286 H POC Glucose (mg/dL) Hemoglobin A1c 15.0 H Plasma Lactic Acid Bryn Calcium Phosphorus 2.2 L Total Bilirubin Alkaline Phosphatase Troponin I Total Protein TSH Urine Glucose (UA) Urine Ketones 02/19/22 02/19/22 02/19/22 05:40 06:29 07:36 WBC 18.9 H RBC 3.50 L Hgb 11.4 L Hct 34.3 L MCV MCHC Neutrophils # 15.5 H PT INR APTT ABG pH ABG pCO2 ABG pO2 ABG HCO3 ABG Total CO2 ABG O2 Saturation VBG pH VBG pCO2 VBG HCO3 Sodium Chloride Carbon Dioxide BUN Creatinine Glucose POC Glucose (mg/dL) 307 H 426 H Hemoglobin A1c Plasma Lactic Acid Bryn Calcium Phosphorus Total Bilirubin Alkaline Phosphatase Troponin I Total Protein TSH Urine Glucose (UA) Urine Ketones 02/19/22 02/19/22 02/19/22 08:34 09:40 10:35 WBC RBC Hgb Hct MCV MCHC Neutrophils # PT INR APTT ABG pH ABG pCO2 ABG pO2 ABG HCO3 ABG Total CO2 ABG O2 Saturation VBG pH VBG pCO2 VBG HCO3 Sodium Chloride Carbon Dioxide BUN Creatinine Glucose POC Glucose (mg/dL) 195 H 263 H 161 H Hemoglobin A1c Plasma Lactic Acid Bryn Calcium Phosphorus Total Bilirubin Alkaline Phosphatase Troponin I Total Protein TSH Urine Glucose (UA) Urine Ketones - Diagnostic Findings Chest x-ray: image reviewed Assessment and Plan Assessment: Acute diabetic ketoacidosis. Anion gap metabolic acidosis, secondary to DKA. Rule out non-ST segment elevation myocardial infarction. History of hypothyroidism. History of hyperlipidemia. History of gastroesophageal reflux disease. Valvular heart disease/aortic stenosis. Plan: Plan dated 02/19/2022. I was hoping the patient could be downgraded to the general medical floor, but with the elevated troponin, hypotension, the fluid bolus requirement, and the ongoing insulin requirement, he should probably come to the intensive care unit. Unfortunately, I do not have any beds available at this time. We will continue to monitor the patient closely. Additional recommendations and suggestions are forthcoming. If not already requested, the patient should be seen by cardiology. Additional recommendations and suggestions are forthcoming. Time with Patient: Greater than 30
[2022-02-19 13:10] VITALS: BMI 31.0
[2022-02-19 13:23] LABS: Calcium 9.1 mg/dL (8.4-10.2); Magnesium 2.3 mg/dL (1.6-2.3); Potassium 3.7 mmol/L (3.5-5.1)
--- NOTE | 2022-02-19 14:02 | CA ---
Transthoracic Echo Report Name: Wilfred Caballero Age: 77 Gender: M : 1945 Exam Date: 02/19/2022 11:07 Exam Location: [facility] Ht (in): 69 Wt (lb): 210 Ordering Physician: Toni Hilliard MD ([id number]) Attending/Referring Phys: Arminda RENDON Machine Farmworker Joslyn Amezquita RDCS Procedure CPT: Indications: cp, postive trop Cardiac Hx: Technical Quality: Technically difficult study Contrast 1: Lumason Total Dose (mL): 4 Contrast 2: Total Dose (mL): MEASUREMENTS (Male / Female) Normal Values 2D ECHO LV Diastolic Diameter PLAX 4.3 cm 4.2 - 5.9 / 3.9 - 5.3 cm LV Systolic Diameter PLAX 2.2 cm IVS Diastolic Thickness 1.2 cm 0.6 - 1.0 / 0.6 - 0.9 cm LVPW Diastolic Thickness 1.2 cm 0.6 - 1.0 / 0.6 - 0.9 cm LV Relative Wall Thickness 0.6 RV Internal Dim ED PLAX 4.2 cm LVOT Diameter 1.8 cm LA Volume 44.9 cm??? 18 - 58 / 22 - 52 cm??? M-MODE Aortic Root Diameter MM 3.2 cm LA Systolic Diameter MM 4.2 cm LA Ao Ratio MM 1.3 DOPPLER AV Peak Velocity 409.2 cm/s AV Peak Gradient 67.0 mmHg AV Mean Velocity 296.2 cm/s AV Mean Gradient 40.4 mmHg AV Velocity Time Integral 85.6 cm LVOT Peak Velocity 134.1 cm/s LVOT Peak Gradient 7.2 mmHg LVOT Velocity Time Integral 36.5 cm LVOT Stroke Volume 91.5 cm??? LVOT Stroke Volume Index 43.4 ml/m??? LVOT Cardiac Index 2938.3 cm???/min???m??? AV Area Cont Eq vti 1.1 cm??? AV Area Cont Eq pk 0.8 cm??? MV Peak Velocity 104.0 cm/s MV Peak Gradient 4.3 mmHg MV Mean Velocity 69.5 cm/s MV Mean Gradient 2.1 mmHg MV Velocity Time Integral 30.2 cm Mitral E Point Velocity 75.1 cm/s Mitral A Point Velocity 100.6 cm/s Mitral E to A Ratio 0.7 MV E' Velocity 6.4 cm/s Mitral E to MV E' Ratio 11.8 TR Peak Velocity 170.1 cm/s TR Peak Gradient 11.6 mmHg Right Ventricular Systolic Press 16.1 mmHg FINDINGS Left Ventricle Mildly increased left ventricular wall thickness. Normal left ventricular systolic function with no obvious regional wall motion abnormalities. Left ventricular ejection fraction is estimated at 55%. Right Ventricle Severe right ventricular dilatation. Right ventricular systolic pressure within normal limits. Right Atrium Right atrium not well visualized. Left Atrium Normal left atrial size. Mitral Valve Structurally normal mitral valve. No mitral stenosis. Mild mitral annular calcification. Trace mitral regurgitation. Aortic Valve Severe aortic stenosis with a peak velocity of 4 m/s, peak gradient 67 mmHg, mean gradient 40 mmHg, and estimated aortic valve area of 0.8 cm???. No aortic regurgitation. Tricuspid Valve Structurally normal tricuspid valve. Mild tricuspid regurgitation. Pulmonic Valve Trace pulmonic regurgitation. Pericardium No pericardial effusion. Aorta Normal size aortic root and proximal ascending aorta. CONCLUSIONS Normal LV systolic function Moderate to severe aortic stenosis Previewed by: Dr. Toni Hilliard MD (Electronically Signed) Final Date: 19 February 2022 14:01
[2022-02-19 14:10] LABS: Glucose,Whole Blood 117 mg/dL (70-110)
[2022-02-19] MEDS: INSULIN DETEMIR (LEVEMIR) 100 UNIT/ML SYR SQ SCH ×2 (14:12→20:56)
[2022-02-19 17:09] LABS: Glucose,Whole Blood 150 mg/dL (70-110)
[2022-02-19 17:19] LABS: Calcium 9.6 mg/dL (8.4-10.2); Magnesium 2.4 mg/dL (1.6-2.3); Potassium 4.6 mmol/L (3.5-5.1)
[2022-02-19] MEDS ORDERED: ACETAMINOPHEN TAB 325 MG TAB PO PRN (17:24)
--- NOTE | 2022-02-19 20:18 | CONS ---
CONSULTATION HISTORY OF PRESENT ILLNESS: Wilfred is a 77-year-old gentleman with history of insulin-requiring diabetes, hypertension, and dyslipidemia who presented to hospital with symptoms of lightheadedness, dizziness, and headache. He was found to be in diabetic ketoacidosis with blood sugar of over 1000, lactic acid of 5.8. His creatinine is 2.1 and the troponin came back elevated for which Cardiology had been consulted. His peak troponin was 2.7. EKG reveals sinus rhythm without significant ST-T wave changes. The patient's non-ST segment elevation WI could be related to the diabetic ketoacidosis. We are treating him with intravenous heparin, aspirin, and will add nitrates and beta blockers whenever the blood pressure improves. He is currently on Lipitor. He is free of chest pain and does not have symptoms of heart failure. PAST MEDICAL HISTORY: Significant for ibv-[id number] diabetes, hypertension, and dyslipidemia. CURRENT MEDICATIONS: 1. Aspirin. 2. Lipitor 80 mg daily. 3. Jardiance. 4. Norvasc 5 daily. 5. Zestril 20 daily. 6. Insulin. 7. Actos. 8. Levothyroxine. 9. Flomax. 10.Glucophage. 11.Motrin. ALLERGIES: There are no known drug allergies. FAMILY HISTORY: Negative for premature coronary artery disease. SOCIAL HISTORY: Negative for current smoking, EtOH abuse, or drug abuse. REVIEW OF SYSTEMS: A review of systems has been performed, pertinence are as documented in history of presenting illness. PHYSICAL EXAMINATION: GENERAL: He is comfortable at rest. VITAL SIGNS: Heart rate is 74 beats per minute, blood pressure is 82/50, respiratory rate is 18, and O2 saturation is 95% on room air. NECK: There is no jugular venous distention. CHEST: Exam reveals good air entry bilaterally. HEART: Exam reveals first and second heart sounds, an ejection systolic murmur in the aortic area. ABDOMEN: Soft. EXTREMITIES: Did not reveal any edema. Peripheral pulses are felt. LABORATORIES: Labs showed that the potassium is 4.4, BUN is 60, creatinine is 1.9, blood sugar is down to 662. Troponin is elevated at 2.7, hemoglobin is 7.4, white cell count is elevated at 18.9. Lactic acid is elevated. ASSESSMENT: 1. Acute non-ST segment elevation myocardial infarction. 2. Acute renal failure. 3. Acute diabetic ketoacidosis. 4. History of heart murmur, probably secondary to aortic stenosis. PLAN: I am going to obtain a 2D echo on him to evaluate his LV function and wall motion, treat him with heparin, aspirin, statins and add beta blockers and nitrates when the blood pressure improves. He will need evaluation for underlying CAD, but this is going to be done after the diabetic ketoacidosis resolves. Thank you for allowing us to participate in the care of this pleasant gentleman. RICK / SRAVANI: [id number] /
[2022-02-19 20:32] LABS: Glucose,Whole Blood 226 mg/dL (70-110)
[2022-02-19] MEDS: TAMSULOSIN 0.4 MG CAP.ER.24H PO SCH (20:56)
[2022-02-19] MEDS: ATORVASTATIN 80 MG TAB PO SCH (20:56)
[2022-02-19] MEDS: LEVOTHYROXINE 100 MCG TAB PO SCH (20:56)
[2022-02-19] MEDS: CHOLECALCIFEROL 25 MCG (1000 IU) TABLET PO SCH (20:56)
[2022-02-19 21:41] LABS: African American GFR (CKD) >90 (>60 ml/min/1.73 sqM); Anion Gap 6 mmol/L; Blood Urea Nitrogen 61 mg/dL (9-20); Calcium 8.7 mg/dL (8.4-10.2); Carbon Dioxide 21 mmol/L (22-30); Chloride 107 mmol/L (98-107); Glucose 178 mg/dL (74-99); Magnesium 2.1 mg/dL (1.6-2.3); Non-African American GFR(CKD) 80 (>60 ml/min/1.73 sqM); Potassium 3.8 mmol/L (3.5-5.1); Sodium 134 mmol/L (137-145)
[2022-02-19] MEDS: HEPARIN SOD,PORK IN 0.45% NACL 25,000 UNIT in 0.45% NACL 1 250ML.BAG IV SCH (22:28)
[2022-02-19] MEDS: ASPIRIN 81 MG PO SCH (22:28)
[2022-02-19] MEDS ORDERED: PANTOPRAZOLE 40 MG/10 ML VIAL IVP ONE (22:53)
[2022-02-19 23:22] LABS: Basophils % (A) 0 %; Eosinophils % (A) 0 %; HCT 32.1 % (39.0-53.0); Lymphocytes # (A) 1.6 k/uL (1.0-4.8); Lymphocytes % (A) 10 %; MCH 32.6 pg (25.0-35.0); MCHC 34.2 g/dL (31.0-37.0); MCV 95.5 fL (80.0-100.0); Mean Platelet Volume 10.6; Monocytes # (A) 0.6 k/uL (0-1.0); Monocytes % (A) 4 %; Neutrophils # (A) 13.4 k/uL (1.3-7.7); Neutrophils % (A) 84 %; Platelet Count 154 k/uL (150-450); RBC 3.37 m/uL (4.30-5.90); RDW 13.1 % (11.5-15.5); WBC 15.9 k/uL (3.8-10.6)
[2022-02-19 23:45] LABS: African American GFR (CKD) >90 (>60 ml/min/1.73 sqM); Anion Gap 2 mmol/L; Blood Urea Nitrogen 59 mg/dL (9-20); Calcium 8.6 mg/dL (8.4-10.2); Carbon Dioxide 25 mmol/L (22-30); Chloride 107 mmol/L (98-107); Glucose 135 mg/dL (74-99); Magnesium 2.1 mg/dL (1.6-2.3); Non-African American GFR(CKD) 79 (>60 ml/min/1.73 sqM); Potassium 3.8 mmol/L (3.5-5.1); Sodium 134 mmol/L (137-145)
[2022-02-20 00:04] VITALS: RESP 18
[2022-02-20 03:35] VITALS: BP 94/56; PULSE 79; TEMP 98.4
--- NOTE | 2022-02-20 03:39 | P.DS ---
Providers Date of admission: 02/18/22 16:01 Expected date of discharge: 02/20/22 Attending physician: Lary Hall, DO Consults: 02/18/22 16:01 Consult Physician Stat Consulting Provider: Kunal Roberson Consult Reason/Comments: dka Do you want consulting provider notified?: Already Contacted 02/18/22 21:20 Consult Physician Urgent Consulting Provider: Gomez Mauricio Consult Reason/Comments: Elevated Troponin Do you want consulting provider notified?: Yes 02/19/22 22:32 Consult Physician Urgent Consulting Provider: Aldo Damon Consult Reason/Comments: GIB Do you want consulting provider notified?: Yes Primary care physician: [facility] Course: The patient is a 77-year-old male with a PMH of type II DM, hypertension, hyperlipidemia, hypothyroidism, and BPH who presented to the emergency room with complaints of lightheadedness and headache. The patient was noted to be in severe DKA and was admitted for further management. He was started on the DKA protocol with insulin infusion. The patient's troponin was also noted to be mildly elevated on admission at 0.066 and gradually uptrending to peak of 15.6 during the hospitalization. Cardiology was consulted and recommended heparin infusion along with aspirin for non-ST elevation DC. At around 10 PM on 02/19, notified by the RN that the patient had large black tarry bloody stool. Cardiology was subsequently contacted and recommended holding the patient's heparin infusion and aspirin. The case was discussed with general surgeon on- call Dr. Eisenberg who recommended that the patient be transferred as the hospital did not have GI service available this weekend. The case was discussed with the patient who was in agreement with the plan including transfer to another facility. The case was presented to and accepted by [facility] under Dr. Ken Lewis to Room Stepdown 27. Physical Examination General: Non-toxic, in no acute distress, appears stated age, normal weight HEENT: NC/AT, anicteric sclerae, moist conjunctiva, no lid-lag, PERRLA Cardiovascular: S1/S2 wnl, systolic murmur appreciated, rubs, or gallops Lungs: Clear to auscultation, normal respiratory effort, no accessory muscle use Abdominal: Soft, non-tender, non-distended, no guarding, rebound, or rigidity Skin: Warm, dry Extremities: No edema or contractures Psychiatric: Alert and oriented to person, place and time, appropriate affect Neuro: Moving all extremities spontaneously with no gross focal deficits noted Discharge diagnosis: Acute GI bleeding, NSTEMI, DKA, HTN, HLD, Hypothyroidism, BPH A total of 60 minutes of time were spent preparing this complex discharge summary. Patient Condition at Discharge: Serious Plan - Discharge Summary New Discharge Prescriptions: No Action Levothyroxine Sodium [Synthroid] 100 mcg PO HS Aspirin 81 mg PO HS Atorvastatin [Lipitor] 80 mg PO HS Tamsulosin HCl [Flomax] 0.4 mg PO HS metFORMIN HCL [Glucophage] 1,000 mg PO HS Pioglitazone [Actos] 30 mg PO HS Insulin Glargine,Hum.rec.anlog [Insulin Glargine Solostar] 60 units SQ HS amLODIPine [Norvasc] 5 mg PO HS Cholecalciferol [Vitamin D3 (25 Mcg = 1000 Iu)] 50 mcg PO HS Ibuprofen [Motrin] 600 mg PO Q8HR PRN PRN Reason: Pain lisinopriL [Zestril] 20 mg PO HS Empagliflozin [Jardiance] 25 mg PO HS Discharge Medication List Aspirin 81 mg PO HS 02/14/14 [History] Atorvastatin [Lipitor] 80 mg PO HS 02/14/14 [History] Levothyroxine Sodium [Synthroid] 100 mcg PO HS 02/14/14 [History] Cholecalciferol [Vitamin D3 (25 Mcg = 1000 Iu)] 50 mcg PO HS 02/18/22 [History] Empagliflozin [Jardiance] 25 mg PO HS 02/18/22 [History] Ibuprofen [Motrin] 600 mg PO Q8HR PRN 02/18/22 [History] Insulin Glargine,Hum.rec.anlog [Insulin Glargine Solostar] 60 units SQ HS 02/18/22 [History] Pioglitazone [Actos] 30 mg PO HS 02/18/22 [History] Tamsulosin HCl [Flomax] 0.4 mg PO HS 02/18/22 [History] amLODIPine [Norvasc] 5 mg PO HS 02/18/22 [History] lisinopriL [Zestril] 20 mg PO HS 02/18/22 [History] metFORMIN HCL [Glucophage] 1,000 mg PO HS 02/18/22 [History] Follow up Appointment(s)/Referral(s): [facility],Clinic [Primary Care Provider] - 1-2 days
== END 2022-02-20 06:32 | disposition other institution (70) | DRG 638 ==
LOC: EC 11:52 → 2SICU 16:01 → 3SCARD 02-19 13:45
PROVIDERS: ADMIT Internal Medicine; ATTEND Internal Medicine
DX: E11.10 Type 2 diabetes mellitus with ketoacidosis without coma (principal); N17.9 Acute kidney failure, unspecified; D72.829 Elevated white blood cell count, unspecified; R79.89 Other specified abnormal findings of blood chemistry; I08.3 Combined rheumatic disorders of mitral, aortic and tricuspid valves; I37.1 Nonrheumatic pulmonary valve insufficiency; E03.9 Hypothyroidism, unspecified; M54.50 Low back pain, unspecified; E78.5 Hyperlipidemia, unspecified; G89.29 Other chronic pain; I10 Essential (primary) hypertension; Z79.890 Hormone replacement therapy; I25.2 Old myocardial infarction; N40.0 Benign prostatic hyperplasia without lower urinary tract symptoms; Z20.822 Contact with and (suspected) exposure to COVID-19; Z79.4 Long term (current) use of insulin; Z79.82 Long term (current) use of aspirin; Z79.84 Long term (current) use of oral hypoglycemic drugs; Z79.899 Other long term (current) drug therapy
CPT/HCPCS: 36415; 36600; 71046; 80048; 80051; 80053; 81003; 82009; 82272; 82565; 82803; 82805; 82947; 83036; 83605; 83690; 83735; 83880; 84100; 84439; 84443; 84484; 84520; 85025; 85610; 85730; 87635; 93005; 93306; 96361; 96374; 96375; 96376; 99291

== ENCOUNTER → 2022-03-31 | Day surgery (SDC) | payer MEDICARE, OTHER ==
[~2022-03-31] MED LIST changes: +ALPRAZolam 0.25 MG TAB PO PRN; +ALPRAZolam 0.5 MG TAB PO PRN; +ASPIRIN 325 MG TAB PO STA; +ASPIRIN 81 MG ONE; +BENZOCAINE SPRAY 1 CAN TOPICAL ONE; +HEPARIN SODIUM 1,000 UN/ML (10ML VL) IV ONE; +HEPARIN SODIUM 1,000 UN/ML (10ML VL) ONE; +IOPAMIDOL-370 125ML BTL INJ ONE; +IV FLUID CONTINUATION 800 ML IV ONE; -LACTATED RINGERS 1,000 ML IV SCH; +LIDOCAINE 1% INJ 10MG/ML (5 ML VIAL-PF) SQ ONE; +MIDAZOLAM 2 MG/2 ML VIAL IV ONE; +MIDAZOLAM 2 MG/2 ML VIAL IVP ONE; +NITROGLYCERIN SL TABS 0.4 MG TAB SUBLINGUAL PRN; +RX INFO: IV CONTRAST WAS GIVEN 1 EACH MISC MISCELLANE PRN; +SODIUM CHLORIDE 0.9% 1,000 ML in EMPTY BAG 1 BAG IV SCH; +VERAPAMIL 2.5 MG/ML 2 ML AMP ONE; +VERAPAMIL SYRINGE (5 MG/10 ML) INTRAARTER ONE; +fentaNYL (PF) 50 MCG/1 ML VIAL IVP ONE; +fentaNYL (PF) 50 MCG/ML 2 ML AMP IV ONE; +fentaNYL (PF) 50 MCG/ML 2 ML AMP ONE
[2022-03-31 09:56] VITALS: TEMP 98.1
[2022-03-31 10:12] LABS: Glucose,Whole Blood 68 mg/dL (70-110)
[2022-03-31 10:24] LABS: Basophils % (A) 1 %; Eosinophils # (A) 0.3 k/uL (0-0.7); Eosinophils % (A) 4 %; HCT 35.7 % (39.0-53.0); HGB 11.8 gm/dL (13.0-17.5); Hypochromasia Slight; Lymphocytes # (A) 1.5 k/uL (1.0-4.8); Lymphocytes % (A) 23 %; MCH 32.2 pg (25.0-35.0); MCHC 33.1 g/dL (31.0-37.0); MCV 97.2 fL (80.0-100.0); Mean Platelet Volume 8.8; Monocytes # (A) 0.4 k/uL (0-1.0); Monocytes % (A) 7 %; Neutrophils # (A) 4.3 k/uL (1.3-7.7); Neutrophils % (A) 63 %; Platelet Count 175 k/uL (150-450); RBC 3.68 m/uL (4.30-5.90); RDW 13.7 % (11.5-15.5); WBC 6.7 k/uL (3.8-10.6)
[2022-03-31 10:43] LABS: African American GFR (CKD) >90 (>60 ml/min/1.73 sqM); Anion Gap 3 mmol/L; Blood Urea Nitrogen 15 mg/dL (9-20); Calcium 9.1 mg/dL (8.4-10.2); Carbon Dioxide 27 mmol/L (22-30); Chloride 112 mmol/L (98-107); Glucose 66 mg/dL (74-99); Non-African American GFR(CKD) 88 (>60 ml/min/1.73 sqM); Sodium 142 mmol/L (137-145)
[2022-03-31 11:04] LABS: Potassium 3.9 mmol/L (3.5-5.1)
[2022-03-31 14:50] VITALS: PULSE 69
[2022-03-31 17:00] VITALS: BP 147/65; RESP 16
--- NOTE | 2022-04-05 08:45 | CC ---
CARDIAC CATHETERIZATION REPORT INDICATIONS: Non ST-segment elevation NV and aortic stenosis. PROCEDURE NOTE: After obtaining informed consent, left heart catheterization, coronary angiogram and aortogram were performed via the right radial artery using standard Manan catheters. A size 3.5 right and left Manan was used to engage the right and left coronary arteries. An aortogram was performed using a pigtail catheter. The patient received moderate conscious sedation, total sedation time was 22 minutes, was given 5 mg of verapamil and 4000 units of heparin per protocol. Right radial artery access was obtained using modified Seldinger technique, and a 6- Gabonese sheath was placed. Catheters and wires were floated into the ascending aorta under fluoroscopic guidance. FINDINGS: 1. Hemodynamics: Central aortic pressure is 130/70 mm. 2. Left Ventriculogram: Left ventriculogram is not performed. 3. Aortogram: Aortogram did not reveal ascending aortic aneurysm and significant aortic regurgitation. Left main coronary artery appears calcified but is free of significant stenosis. Divides into left anterior descending coronary artery and circumflex coronary artery. LAD is totally occluded in its midportion. Circumflex coronary artery shows mild nonobstructive disease. Right coronary artery is free of significant stenosis. CONCLUSIONS: Totally occluded mid LAD with some flow into the distal LAD. This is a vessel that probably was occluded at the time of his acute non ST-segment elevation NV a month ago. The patient's echocardiogram shows preserved LV function, the EKG did not reveal any evidence of anterior wall myocardial infarction. PLAN: I am going to ask the on-call mattress renovator to review the angiographic data and see if we can perform angioplasty of the LAD. MMODL / IJN: [id number] /
--- NOTE | 2022-04-05 10:27 | ECHOT ---
TRANSESOPHAGEAL ECHOCARDIOGRAM INDICATION: Severe aortic stenosis. PROCEDURE NOTE: After obtaining informed consent, transesophageal echocardiogram was performed in left lateral position using an Omniplane probe. Local and IV sedation were obtained using Xylocaine spray, 2 mg of Versed and 50 mcg of fentanyl. Total sedation time was 10 minutes. The patient tolerated the procedure well without any obvious immediate complications. FINDINGS: 1. Aortic valve appears heavily calcified, appears quadricuspid and shows severe stenosis with a calculated valve area of around 0.7 squared centimeters. There is no aortic regurgitation. Ascending aorta measures within normal limits. There is moderate atherosclerotic plaque noted. 2. Mitral valve shows mitral annular calcification with mild mitral regurgitation. Tricuspid valve appears normal. Left atrium appears enlarged. Right atrium and right ventricle seen within normal limits. There is no evidence of ccet-sm-pdimr shunt by color-flow Doppler or [id number]-gd-[id number] shunt by agitated saline contrast study. Left ventricle has normal size, wall motion, systolic function. CONCLUSION: Severe aortic stenosis involving a heavily calcified aortic valve with severe restriction in leaflet mobility and a calculated valve area of 0.7 square centimeters. MMODL / IJN: [id number] /
== END ==
LOC: CATHCVL 09:30
PROVIDERS: ATTEND Internal Medicine Cardiovascular Disease
DX: I22.2 Subsequent non-ST elevation (NSTEMI) myocardial infarction (principal); I35.0 Nonrheumatic aortic (valve) stenosis; I10 Essential (primary) hypertension; E11.9 Type 2 diabetes mellitus without complications; E78.2 Mixed hyperlipidemia
CPT/HCPCS: 93312; 93320; 93325; 93458; 80048; 85025; C1769; C1894; J2250; J2001; J3010 ×2; J1644; Q9967